=== PATIENT | female | born 1940 | race Caucasian/White ===

== ENCOUNTER → 2023-09-19 09:55 | Outpatient (REF) | payer MEDICARE, OTHER, SELFPAY ==
[2023-09-19 10:18] LABS: % Eosinophils 9.2 % (0-6); % Immature Granulocytes 0.3 % (0-0.5); % Lymphocytes 26.2 % (20.5-51.1); % Monocytes 8.7 % (1.7-9.3); % Neutrophils 54.6 % (42.2-75.2); Absolute Basophils 0.1 10^3/uL (0-0.2); Absolute Eosinophils 0.7 10^3/uL (0-0.7); Absolute Lymphocytes 2.1 10^3/uL (1.2-3.4); Absolute Monocytes 0.7 10^3/uL (0.1-0.6); Absolute Neutrophils 4.3 10^3/uL (1.4-6.5); Hematocrit 40.8 % (37.0-47.0); Hemoglobin 13.8 g/dL (12.0-16.0); Mean Corp Hgb Conc. 33.8 g/dL (33.0-37.0); Mean Corpuscular Hgb 30.6 pg (27.0-31.0); Mean Corpuscular Volume 90.5 fL (81.0-99.0); Mean Platelet Volume 8.8 fL (7.4-10.4); Nucleated Red Blood Cells % 0 %; Platelet Count 295 10^3/uL (130-400); Red Blood Cell Count 4.51 10^6/uL (4.20-5.40); Red Cell Dist. Width 14.5 % (11.5-14.5); White Blood Cell Count 7.9 10^3/uL (4.8-10.8)
[2023-09-19 12:00] LABS: Glycohemoglobin (HgbA1c) 6.2 % (4.0-5.6)
[2023-09-19 12:22] LABS: TSH Reflex To Free T4 3.37 uIU/ml (0.47-4.68)
[2023-09-19 13:16] LABS: ALT (SGPT) 15 U/L (0-35); AST (SGOT) 23 U/L (14-36); Albumin 4.2 g/dl (3.5-5.0); Alkaline Phosphatase 68 U/L (38-126); Blood Urea Nitrogen 16 mg/dl (7-17); Calcium 9.3 mg/dl (8.4-10.2); Carbon Dioxide 26 mmol/L (22-30); Chloride 106 mmol/L (98-107); Glucose 85 mg/dl (70-99); HDL Cholesterol 89 mg/dl; LDL Cholesterol, Calculated 162 mg/dl; Potassium 4.3 mmol/L (3.5-5.1); Sodium 137 mmol/L (135-145); Total Bilirubin 0.7 mg/dl (0.2-1.3); Total Cholesterol 279 mg/dl (50-199); Total Protein 6.9 g/dl (6.3-8.2); Triglyceride 144 mg/dl (10-149); Very Low Density Lipoprotein 28 mg/dl (0-30); eGFR > 60.00
== END ==
LOC: REG 09:55
PROVIDERS: ATTENDING PHYSICIAN Family Medicine
DX: I10 Essential (primary) hypertension (principal); E78.00 Pure hypercholesterolemia, unspecified; I87.2 Venous insufficiency (chronic) (peripheral); R73.03 Prediabetes; R73.9 Hyperglycemia, unspecified; I26.99 Other pulmonary embolism without acute cor pulmonale
CPT/HCPCS: 36415; 80053; 80061; 83036; 84443; 85025

== ENCOUNTER 2023-11-26 12:36 | Emergency (ER) | payer MEDICARE, OTHER, SELFPAY ==
[2023-11-26 12:39] VITALS: BP 136/76
[2023-11-26 12:41] VITALS: BP 136/76
[2023-11-26 13:00] VITALS: BP 142/74
[2023-11-26 13:12] LABS: COVID-19 Antigen Negative (Negative)
--- NOTE | 2023-11-26 13:48 | ED.GENMED ---
History of Present Illness
General
Chief Complaint: Cough
Source: patient and family
Exam Limitations: none
Time Seen by Provider: 11/26/23 12:52
Nursing documentation reviewed up to this point in time: agreed with
Travel History
Have you had any contact with someone who has COVID-19?: No
Do you have any symptoms of coronavirus? Fever > 100 degrees, chills, cough, shortness of breath, sore throat, loss of taste or smell, muscle aches, or headache?: Yes
Symptoms:: cough
History of Present Illness
History of Present Illness:
Patient presents to ED secondary to 2-day history of persistent cough along with shortness of breath over the past 2 days. Denies fever or chills. Denies chest pain or back pain. Denies nausea, vomiting, or diarrhea. Denies leg pain or swelling.
Denies recent illness. Denies recent change in medications or diet. Denies recent travel or surgery. Denies loss of appetite. Per daughter, patient appears to be having trouble speaking with shortness of breath, when she was on the phone with
her this morning. Patient has had history of panic attack.
Past History
Past History
ED Past Medical History: Hypercholesterolemia, Other (Pneumonia) and Other (DVT)
ED Past Surgical History: Cholecystectomy
Social History
Tobacco: Non-smoker
Alcohol: None
Drug: None
Personal:
Living: with family
Employment: Retired
Family History
Family History: Other (Noncontributory)
Review of Systems
Review of Systems
Allergies reviewed?: Yes
All Other Systems: ROS reviewed and negative except as documented in HPI and ROS
Constitutional: Reports no symptoms; Denies fever or chills
EENT: Reports no symptoms
Respiratory: Reports cough and trouble breathing
Cardiac: Reports no symptoms; Denies chest pain
ABD/GI: Reports no symptoms; Denies abdominal pain
: Reports no symptoms
Musculoskeletal: Reports no symptoms
Skin: Reports no symptoms
Neurological: Reports no symptoms
Phy Exam
Physical Exam
Physical Exam:
Physical Exam
General: no apparent distress, not acutely ill. afebrile
Head: nc/at. eomi
Neck: supple. no meningeal signs.
Heart: s1/s2 regular rate and rhythm, no murmur. equal radial pulses.
Lungs: no acute respiratory distress. clear bilaterally
Abdomen: normal bowel sounds. not tender.
Neuro: alert and oriented. no focal neurological deficits
Skin: no rash
Psychiatric: well kept. interactive and cooperative
Extremities: no edema. no calf tenderness.
Course
Orders/Labs/Results
Orders:
Orders
11/26/23 12:43
Electrocardiogram (*1) Urgent
Reason for Study: Shortness of Breath
EKG- Treatment ONCE
11/26/23 12:51
COVID-19 Antigen Urgent
Source: Nasal Swab
11/26/23 13:06
EKG- Treatment ONCE
CR Chest - 2 Views Urgent
Comment:
Reason For Exam: cough/sob
11/26/23 13:26
Basic Metabolic Panel Urgent
Complete Blood Count/With Diff Urgent
D-Dimer Urgent
Magnesium Urgent
Troponin I Urgent
Abnormal Lab Results
11/26/23
13:26
WBC 12.3 H 10^3/uL
(4.8-10.8)
Abs Immat Gran (auto) 0.1 H 10^3/uL
(0-0.05)
Absolute Neuts (auto) 8.8 H 10^3/uL
(1.4-6.5)
Absolute Monos (auto) 1.3 H 10^3/uL
(0.1-0.6)
Lymphocytes % 15.1 L %
(20.5-51.1)
Monocytes % 10.2 H %
(1.7-9.3)
D-Dimer 0.51 H ug/mlFEU
(0.00-0.50)
BUN 20 H mg/dl
(7-17)
Glucose 110 H mg/dl
(70-99)
11/26/23 13:26
11/26/23 13:26
Vital Signs
Initial and Last Documented VS:
Initial Vital Signs
Pulse Resp BP Pulse Ox
83 23 136/76 96
11/26/23 12:39 11/26/23 12:39 11/26/23 12:39 11/26/23 12:39
Last Documented Vital Signs
Temp Pulse Resp BP Pulse Ox
99.3 F 84 17 138/98 96
11/26/23 12:41 11/26/23 14:15 11/26/23 14:15 11/26/23 14:00 11/26/23 14:15
MDM/Problems Addressed
MDM/Problems Addressed:
Chest x-ray: No acute findings.
History and exam consistent with likely viral illness, along with resulting intermittent coughing spells, causing an acute spasm. As patient may also have underlying anxiety, patient may be experiencing subjective causing her to be more short of
breath. During extended course of observation ED, patient remained stable, hemodynamically stable, without any acute respiratory distress. Patient will be discharged home in stable condition to the care of her daughter, with recommendation to
follow-up with primary care physician later this week for reevaluation, or return to ED with worsening symptoms.
D-dimer, when adjusted for age, within normal limits. No indication for any further imaging studies at this time.
*EKG
Interpreted by ED Provider?: Yes
EKG Intrepretation Date: 11/26/23
Heart Rate: 86
Rate: normal
Rhythm: sinus
[place]: normal axis
Interval: normal interval
*Critical Care Note
Total Time (30-74mins, 75-104mins- exclusive of procedures): Not Applicable
ED Attending Note
-
Portions of this chart may have been created with voice recognition software.� Occasional wrong word or��sound alike� substitutions may have occurred due to the inherent limitations of voice recognition software.
Discharge Plan
Departure
Patient Disposition: Home (Routine Discharge)
Date of Disposition: 11/26/23
Time of Disposition: 14:17
Patient with high blood pressure during this ER visit?: Yes
Discharge Problem:
URI (upper respiratory infection)
Instructions: Viral Upper Respiratory Infection, Adult (DC)
Prescriptions:
No Action
medlfocw-vjm-FG-lycopen-lutein [Centrum Silver] 1 EACH tablet
1 ea PO DAILY
aspirin 81 MG tablet,delayed release (DR/EC)
81 mg PO DAILY
losartan 25 MG tablet
25 mg PO DAILY
zinc 50 MG tablet
50 mg PO DAILY
magnesium 250 MG tablet
250 mg PO DAILYPRN PRN (Reason: cramps)
omega 8-lyn-lfr-fish oil 1 EACH capsule
1,500 mg PO DAILY
pantoprazole 40 MG tablet,delayed release (DR/EC)
40 mg PO DAILY 30 Days Qty: 30 0RF
ibuprofen 400 MG tablet
400 mg PO Q6HPRN PRN (Reason: knee pains) 14 Days Qty: 60 0RF
amoxicillin-pot clavulanate 1 TABLET tablet
1 tab PO Q12 Qty: 20 0RF
Referrals:
UNKNOWN - PT DOES,NOT KNOW [Family Provider] -
Activity Restrictions/Additional Instructions:
As discussed, please follow-up with your primary care physician for reevaluation later this week, or return to ED with worsening symptoms.
Interventions
Interventions:
*Risk Screen - Suicide Last Done: 11/26/23 12:54
*General Assessment Last Done: 11/26/23 12:54
*Neglect/Abuse Screening Last Done: 11/26/23 12:54
ED- Fall Risk Assessment Last Done: 11/26/23 12:54
*ED COVID-19 Vaccine History Last Done: 11/26/23 12:54
*Nursing Disposition Last Done: 11/26/23 14:42
ED- Cardiac Assessment Last Done: 11/26/23 12:54
ED- Pulmonary Assessment Last Done: 11/26/23 12:54
Discharge Date and Time
Discharge Date/Time: 11/26/23 14:30
Print Language: SENEGALESE
[2023-11-26 13:50] LABS: % Basophils 0.6 % (0-2); % Eosinophils 2.5 % (0-6); % Immature Granulocytes 0.4 % (0-0.5); % Lymphocytes 15.1 % (20.5-51.1); % Monocytes 10.2 % (1.7-9.3); % Neutrophils 71.2 % (42.2-75.2); Absolute Basophils 0.1 10^3/uL (0-0.2); Absolute Eosinophils 0.3 10^3/uL (0-0.7); Absolute Immature Granulocytes 0.1 10^3/uL (0-0.05); Absolute Lymphocytes 1.9 10^3/uL (1.2-3.4); Absolute Monocytes 1.3 10^3/uL (0.1-0.6); Absolute Neutrophils 8.8 10^3/uL (1.4-6.5); Hematocrit 38.8 % (37.0-47.0); Mean Corp Hgb Conc. 33.5 g/dL (33.0-37.0); Mean Corpuscular Hgb 30.5 pg (27.0-31.0); Mean Corpuscular Volume 91.1 fL (81.0-99.0); Mean Platelet Volume 9.3 fL (7.4-10.4); Nucleated Red Blood Cells % 0 %; Platelet Count 287 10^3/uL (130-400); Red Blood Cell Count 4.26 10^6/uL (4.20-5.40); White Blood Cell Count 12.3 10^3/uL (4.8-10.8)
[2023-11-26 13:59] LABS: Blood Urea Nitrogen 20 mg/dl (7-17); Calcium 9.3 mg/dl (8.4-10.2); Carbon Dioxide 23 mmol/L (22-30); Chloride 101 mmol/L (98-107); Glucose 110 mg/dl (70-99); Magnesium 2.2 mg/dl (1.6-2.3); Sodium 135 mmol/L (135-145); eGFR > 60.00
[2023-11-26 14:00] VITALS: BP 138/98
[2023-11-26 14:05] LABS: D-Dimer 0.51 ug/mlFEU (0.00-0.50)
[2023-11-26 14:09] LABS: Troponin I < 0.012 ng/ml
[2023-11-26 14:11] LABS: Potassium 4.1 mmol/L (3.5-5.1)
== END 2023-11-26 14:30 | disposition home or self-care (01) ==
LOC: EMR 12:36
PROVIDERS: EMERGENCY PHYSICIAN Emergency Medicine
DX: J06.9 Acute upper respiratory infection, unspecified (principal); E78.00 Pure hypercholesterolemia, unspecified; Z86.718 Personal history of other venous thrombosis and embolism; Z90.49 Acquired absence of other specified parts of digestive tract
CPT/HCPCS: 99283; 71046; 80048; 83735; 84484; 85025; 85379; 87811; 93005

== ENCOUNTER 2023-11-27 12:02 | Emergency (ER) | payer MEDICARE, OTHER, SELFPAY ==
[2023-11-27 12:06] VITALS: BP 155/63
[2023-11-27 12:07] VITALS: BP 155/63
--- NOTE | 2023-11-27 13:07 | ED.GENMED ---
History of Present Illness
General
Chief Complaint: Breathing Problem
Source: patient
Exam Limitations: none
Time Seen by Provider: 11/27/23 12:41
Nursing documentation reviewed up to this point in time: agreed with
Travel History
Have you had any contact with someone who has COVID-19?: No
Do you have any symptoms of coronavirus? Fever > 100 degrees, chills, cough, shortness of breath, sore throat, loss of taste or smell, muscle aches, or headache?: Yes
Symptoms:: cough
History of Present Illness
History of Present Illness:
The patient is a pleasant 83-year-old female who reports she has had a cough and mild shortness of breath for 3 days. She was evaluated in the emergency department yesterday and had a chest x-ray done as well as blood work, D-dimer and COVID swab.
Patient was diagnosed with a viral URI. Patient reports that she called her primary care doctor's office today to have follow-up and to her surprise, her doctor had retired. Patient reports that this made her nervous because she was told to have
follow-up, and this prompted her to call 911. Patient arrives with complaints of persistent cough and mild shortness of breath. She denies fever. She reports she feels slightly weak and more short of breath with walking. Patient reports she
lives alone but has a very supportive family. She denies chest pain, headache, vomiting, diarrhea and rash. Patient reports she adamantly does not want to be admitted to the hospital but wanted to be checked out by her doctor, and when her doctor
was not available, she got nervous.
Past History
Past History
ED Past Medical History: Hypercholesterolemia, Other (Pneumonia) and Other (DVT)
ED Past Surgical History: Cholecystectomy
Social History
Tobacco: Non-smoker
Alcohol: None
Drug: None
Personal: Other
Living: alone
Employment: Retired
Family History
Family History: Other (Noncontributory)
Review of Systems
Review of Systems
Allergies reviewed?: Yes
All Other Systems: ROS reviewed and negative except as documented in HPI and ROS
Constitutional: Reports fatigue
EENT: Reports no symptoms
Respiratory: Reports cough and trouble breathing
Cardiac: Reports no symptoms
ABD/GI: Reports no symptoms
: Reports no symptoms
Musculoskeletal: Reports no symptoms
Skin: Reports no symptoms
Neurological: Reports no symptoms
Endocrine: Reports no symptoms
Hematologic/Lymphatic: Reports no symptoms
Psychiatric: Reports no symptoms
Phy Exam
Physical Exam
Physical Exam:
Physical Exam
General: no apparent distress, not acutely ill but appears nervous. Is conversational
Neck: supple. no meningeal signs. normal psoterior pharynx
Heart: Tachycardic, regular
Lungs: Lungs are clear. No retraction. No wheezing no crackles. Patient is mildly tachypneic with talking
Abdomen: Soft, nontender
Neuro: alert and oriented. no focal neurological deficits
Skin: no rash
Psychiatric: well kept. interactive and cooperative
Extremities: no edema. no calf tenderness. negative homans. good distal pulses
Scores
Heart Failure Risk
Heart Failure Risk Score: Not Applicable
Course
Orders/Labs/Results
Orders:
Orders
11/27/23 13:05
Prednisone [Deltasone] 20 mg PO NOW STA
11/27/23 13:06
CR Chest - 2 Views Urgent
Comment:
Reason For Exam: persistent cough, SOB
11/27/23 13:16
Influenza A+B Rapid Molecular Urgent
ALEJANDRINA Source: Nasal Swab
Specimen Description:
11/27/23 13:24
Electrocardiogram (*1) Urgent
Reason for Study: Tachycardia
11/27/23 13:25
EKG- Treatment ONCE
11/27/23 14:22
Doxycycline [Vibramycin] 100 mg PO NOW STA
Vital Signs
Initial and Last Documented VS:
Initial Vital Signs
Temp Pulse Resp BP Pulse Ox
98.9 F 108 27 155/63 95
11/27/23 12:06 11/27/23 12:06 11/27/23 12:06 11/27/23 12:06 11/27/23 12:06
Last Documented Vital Signs
Temp Pulse Resp BP Pulse Ox
98.9 F 98 27 163/90 95
11/27/23 12:06 11/27/23 15:30 11/27/23 15:30 11/27/23 15:00 11/27/23 15:30
MDM/Problems Addressed
Differential Diagnosis Includes:
Viral illness, pneumonia, CHF, PE
MDM/Problems Addressed:
Patient complains of acute shortness of breath and cough
Chronic conditions affecting care: HTN
Acute Exacerbation and/or Progression of Chronic Illness:
Patient is hypertensive, however, she does admit to feeling very anxious and just had an albuterol treatment prior to arrival.
Acute Exacerbation and/or Progression of Chronic Illness: HTN
*Radiology
Radiology exam reviewed: preliminary read by ED provider (Chest x-ray read by me. No acute disease) and radiology read reviewed
*Pulse Oximetry
Patient hypoxic: yes
Comment: Walking pulse ox 85% on room air. When patient sits down, pulse ox quickly goes to 92% on room air
*EKG
Interpreted by ED Provider?: Yes
Interpretation: abnormal
Comparison EKG: no changes
Rate: normal
Rhythm: sinus
[place]: normal axis
Interval: normal interval
QRS Pattern: normal QRS
Ischemia: non-specific ST changes
*Partition Setter Interpretation
Rate: tachycardiac
Interpretation: abnormal
Rhythm: sinus
*Critical Care Note
Total Time (30-74mins, 75-104mins- exclusive of procedures): Not Applicable
Data Reviewed
Review of Other/Old Records Reveals: Labs (D-dimer yesterday was 0.51 which is in a normal range for patient's age)
Patient Management
Social determinants of health affecting care: Living situation and Strong social support
Escalation/DeEscalation of care consider admission/obs:
Patient's walking pulse ox did drop to 85% on room air. I did speak to the patient and recommended that she be admitted to the hospital. Patient adamantly was unwilling to stay. She is alert and oriented x 3 and understands that we are worried
about her getting worse. I did call and speak directly to patient's daughter, Earnestine, at and did make it clear to her that her mom's oxygen level did drop and that we recommended that she stay in the hospital. Earnestine understands this
and is willing to allow her mom to go home and to support her at home.
Patient told that if she gets any worse with difficulty breathing, weakness, dizziness or any chest pain that she should come back immediately. Again, she understands that she is going to get standard of care because her oxygen levels dropped and
that we did recommend that she be admitted
ED Attending Note
-
Portions of this chart may have been created with voice recognition software.� Occasional wrong word or��sound alike� substitutions may have occurred due to the inherent limitations of voice recognition software.
Discharge Plan
Departure
Patient Disposition: Home (Routine Discharge)
Date of Disposition: 11/27/23
Time of Disposition: 15:45
Patient with high blood pressure during this ER visit?: Yes
Condition: Fair
Covid-19: Negative COVID-19
Discharge Problem:
Acute cough, Acute respiratory distress
Instructions: Shortness of Breath, Adult ED
Prescriptions:
New
prednisone 10 mg tablet
10 mg PO DAILY Qty: 9 0RF
Rx Instructions:
Take 2 tablets daily on days 1, 2, 3
Take 1 tablet daily on day 4, 5, 6
doxycycline hyclate 100 mg capsule
100 mg PO BID Qty: 13 0RF
No Action
aspirin 81 mg Tablet,Delayed Release (Dr/Ec)
162 mg PO DAILY
hydrochlorothiazide 12.5 mg Capsule
12.5 mg PO DAILY
Patient Comments:
11/27/2023, per daughter, pt. needs to be 'scared into taking' this med.; pt. does not take this med. on a routine basis.
Centrum Silver Tablet
1 tab PO DAILY
Unknown Supplements
1 dose PO DAILY
Unknown Vitamins
1 dose PO DAILY
acetaminophen [Tylenol] 325 mg Tablet
650 mg PO BIDPRN PRN (Reason: mild pain)
Referrals:
Rohit Bettencourt DC [Family Provider] -
Activity Restrictions/Additional Instructions:
We recommended that you be admitted to the hospital because your oxygen level dropped. Please do not hesitate to return to the emergency department if you feel any concerns such as difficulty breathing or weakness. You are welcome to come back at
any time.
Continue to use your albuterol inhaler every 4 hours for any difficulty breathing
Interventions
Interventions:
*Risk Screen - Suicide Last Done: 11/27/23 12:06
*General Assessment Last Done: 11/27/23 12:06
*Neglect/Abuse Screening Last Done: 11/27/23 12:06
ED- Fall Risk Assessment Last Done: 11/27/23 16:40
*Nursing Disposition Last Done: 11/27/23 16:40
ED- Cardiac Assessment Last Done: 11/27/23 12:13
ED- Pulmonary Assessment Last Done: 11/27/23 12:13
Discharge Date and Time
Discharge Date/Time: 11/27/23 16:41
Print Language: IRANIAN
[2023-11-27] MEDS: DELTASONE 20 MG PO (13:15)
[2023-11-27 13:19] VITALS: BP 154/71
[2023-11-27 14:00] VITALS: BP 154/74
[2023-11-27 15:00] VITALS: BP 163/90
[2023-11-27] MEDS: VIBRAMYCIN 100 MG PO (15:04)
--- NOTE | 2023-11-27 15:14 | PHANOTE ---
11/27/2023, med rec tech, spoke to pt. and pt.'s daughter to obtain pt.'s med. history; per daughter, pt. does not taking meds.; she has to be 'scared into taking' her HCTZ 12.5 mg capsule. Pt. states to not be taking this med. but it is prescribed
for her to take daily.
== END 2023-11-27 16:41 | disposition home or self-care (01) ==
LOC: EMR 12:02
PROVIDERS: EMERGENCY PHYSICIAN Emergency Medicine; FAMILY PHYSICIAN Chiropractor
DX: R05.9 Cough, unspecified (principal); R06.03 Acute respiratory distress; E78.00 Pure hypercholesterolemia, unspecified; I11.0 Hypertensive heart disease with heart failure; I50.9 Heart failure, unspecified; Z86.718 Personal history of other venous thrombosis and embolism; Z90.49 Acquired absence of other specified parts of digestive tract
CPT/HCPCS: 99283; 71046; 87502; 93005

== ENCOUNTER 2023-12-21 06:26 | Outpatient (RCR) | payer SELFPAY | END 2024-01-01 14:39 | disposition home or self-care (01) | LOC: ROT 06:26 | PROVIDERS: ATTENDING PHYSICIAN Family Medicine | DX: Z02.4 Encounter for examination for driving license (principal) ==

== ENCOUNTER → 2024-02-05 15:59 | Outpatient (REF) | payer MEDICARE, SELFPAY | LOC: RAD 15:59 | PROVIDERS: ATTENDING PHYSICIAN Physician Assistant Medical; FAMILY PHYSICIAN Family Medicine | DX: M25.521 Pain in right elbow (principal) | CPT/HCPCS: 73080 ==

== ENCOUNTER → 2024-02-14 14:01 | Outpatient (REF) | payer MEDICARE, OTHER, SELFPAY | LOC: HWRAD 14:01 | PROVIDERS: ATTENDING PHYSICIAN Family Medicine | DX: S09.90XD Unspecified injury of head, subsequent encounter (principal); R51.9 Headache, unspecified; R42 Dizziness and giddiness | CPT/HCPCS: 70450 ==

== ENCOUNTER → 2024-08-25 15:06 | Outpatient (REF) | payer MEDICARE, OTHER, SELFPAY | LOC: RAD 15:06 | PROVIDERS: ATTENDING PHYSICIAN Family Medicine | DX: R60.0 Localized edema (principal) | CPT/HCPCS: 93971 ==

== ENCOUNTER → 2024-10-30 11:40 | Outpatient (REF) | payer MEDICARE, OTHER, SELFPAY ==
[2024-10-30 13:25] LABS: % Eosinophils 5.9 % (0-6); % Immature Granulocytes 0.4 % (0-0.5); % Lymphocytes 26.4 % (20.5-51.1); % Monocytes 7.3 % (1.7-9.3); Absolute Basophils 0.1 10^3/uL (0-0.2); Absolute Eosinophils 0.4 10^3/uL (0-0.7); Absolute Lymphocytes 1.9 10^3/uL (1.2-3.4); Absolute Monocytes 0.5 10^3/uL (0.1-0.6); Absolute Neutrophils 4.2 10^3/uL (1.4-6.5); Hematocrit 39.8 % (37.0-47.0); Hemoglobin 13.4 g/dL (12.0-16.0); Mean Corp Hgb Conc. 33.7 g/dL (33.0-37.0); Mean Corpuscular Hgb 30.6 pg (27.0-31.0); Mean Corpuscular Volume 90.9 fL (81.0-99.0); Mean Platelet Volume 9.4 fL (7.4-10.4); Nucleated Red Blood Cells % 0 %; Platelet Count 294 10^3/uL (130-400); Red Blood Cell Count 4.38 10^6/uL (4.20-5.40); Red Cell Dist. Width 13.9 % (11.5-14.5); White Blood Cell Count 7.1 10^3/uL (4.8-10.8)
[2024-10-30 13:53] LABS: Glycohemoglobin (HgbA1c) 5.9 % (4.0-5.6)
[2024-10-30 14:05] LABS: ALT (SGPT) 12 U/L (0-35); AST (SGOT) 19 U/L (14-36); Albumin 4.2 g/dl (3.5-5.0); Alkaline Phosphatase 62 U/L (38-126); Blood Urea Nitrogen 15 mg/dl (7-17); Calcium 9.5 mg/dl (8.4-10.2); Carbon Dioxide 25 mmol/L (22-30); Chloride 100 mmol/L (98-107); Glucose 129 mg/dl (70-99); HDL Cholesterol 73 mg/dl; Potassium 4.1 mmol/L (3.5-5.1); Sodium 136 mmol/L (135-145); Total Bilirubin 0.8 mg/dl (0.2-1.3); Total Protein 6.7 g/dl (6.3-8.2); Triglyceride 168 mg/dl (10-149); Very Low Density Lipoprotein 33 mg/dl (0-30); eGFR > 60.00
[2024-10-30 14:11] LABS: LDL Cholesterol, Calculated 172 mg/dl; Total Cholesterol 278 mg/dl (50-199)
[2024-10-30 14:45] LABS: TSH Reflex To Free T4 3.47 uIU/ml (0.47-4.68)
== END ==
LOC: REG 11:40
PROVIDERS: ATTENDING PHYSICIAN Family Medicine
DX: R73.03 Prediabetes (principal); R53.83 Other fatigue; E78.2 Mixed hyperlipidemia
CPT/HCPCS: 36415; 80053; 80061; 83036; 84443; 85025

== ENCOUNTER 2024-11-09 12:18 | Emergency (ER) | payer MEDICARE, OTHER, SELFPAY ==
[2024-11-09 12:24] VITALS: BP 161/61; BMI 29.8
--- NOTE | 2024-11-09 12:34 | EDRN ---
Antony YANES in room w/pt.
[2024-11-09 12:41] LABS: % Basophils 0.8 % (0-2); % Eosinophils 4.2 % (0-6); % Immature Granulocytes 0.5 % (0-0.5); % Lymphocytes 27.8 % (20.5-51.1); % Monocytes 8.3 % (1.7-9.3); % Neutrophils 58.4 % (42.2-75.2); Absolute Basophils 0.1 10^3/uL (0-0.2); Absolute Eosinophils 0.4 10^3/uL (0-0.7); Absolute Lymphocytes 2.5 10^3/uL (1.2-3.4); Absolute Monocytes 0.7 10^3/uL (0.1-0.6); Absolute Neutrophils 5.1 10^3/uL (1.4-6.5); Hematocrit 41.1 % (37.0-47.0); Hemoglobin 14.3 g/dL (12.0-16.0); Mean Corp Hgb Conc. 34.8 g/dL (33.0-37.0); Mean Corpuscular Hgb 30.8 pg (27.0-31.0); Mean Corpuscular Volume 88.6 fL (81.0-99.0); Nucleated Red Blood Cells % 0 %; Platelet Count 311 10^3/uL (130-400); Red Blood Cell Count 4.64 10^6/uL (4.20-5.40); Red Cell Dist. Width 13.7 % (11.5-14.5); White Blood Cell Count 8.8 10^3/uL (4.8-10.8)
[2024-11-09 12:51] LABS: ALT (SGPT) 15 U/L (0-35); AST (SGOT) 22 U/L (14-36); Albumin 4.3 g/dl (3.5-5.0); Alkaline Phosphatase 67 U/L (38-126); Blood Urea Nitrogen 17 mg/dl (7-17); Calcium 9.8 mg/dl (8.4-10.2); Carbon Dioxide 27 mmol/L (22-30); Chloride 99 mmol/L (98-107); Estimated Creatinine Clearance 41 ml/min; Glucose 155 mg/dl (70-99); Potassium 3.8 mmol/L (3.5-5.1); Sodium 134 mmol/L (135-145); Total Bilirubin 0.8 mg/dl (0.2-1.3); Total Protein 7.2 g/dl (6.3-8.2); eGFR > 60.00
[2024-11-09 13:00] VITALS: BP 152/67
[2024-11-09 13:02] LABS: Troponin I 0.016 ng/ml
--- NOTE | 2024-11-09 13:19 | ED.GENMED ---
History of Present Illness
General
Chief Complaint: Fainting/Passed Out
Source: patient
Exam Limitations: none
Time Seen by Provider: 11/09/24 12:23
Nursing documentation reviewed up to this point in time: agreed with
History of Present Illness
History of Present Illness:
84-year-old female presenting to the emergency department today with concerns of syncopal episode while at [employer] she was slowly lowered to the ground by her family no specific injury. Has been feeling weak for a month. Denies specific chest pain
shortness of breath or palpitations.
Past History
Past History
ED Past Medical History: Hypercholesterolemia, Other (Pneumonia) and Other (DVT)
ED Past Surgical History: Cholecystectomy
Social History
Tobacco: Non-smoker
Alcohol: None
Drug: None
Personal: Other
Living: alone
Employment: Retired
Family History
Family History: Other (Noncontributory)
Review of Systems
Review of Systems
Allergies reviewed?: Yes
All Other Systems: ROS reviewed and negative except as documented in HPI and ROS
Phy Exam
Physical Exam
Physical Exam:
GENERAL: Alert , in no apparent distress
EYE: pupils equal and reactive
NECK: Supple, no significant adenopathy.
ENT: o/p clr, mmm.
CARDIAC: Regular rate and rhythm .
LUNGS: Clear breath sounds bilaterally, no acute respiratory distress, no wheezes/rales/rhonchi
ABDOMEN: Soft, without focal tenderness, no r/g, no cvat
NEUROLOGICAL: Alert patient is confused no focal neuro deficits
SKIN: Warm and dry, skin intact.
MUSCULOSKELETAL: No edema, well perfused.
PSYCH: Normal and appropriate interaction.
Course
Orders/Labs/Results
Orders:
Orders
11/09/24 12:23
Electrocardiogram (*1) Urgent
Reason for Study: Chest Pain
Cardiac Monitoring- Treatment ONCE
EKG- Treatment ONCE
11/09/24 12:32
Complete Blood Count/With Diff Urgent
Comprehensive Metabolic Panel Urgent
Free T4 Urgent
TSH Reflex To Free T4 Urgent
Comment: ADD ON
Troponin I Urgent
11/09/24 12:35
Add On- LAB Urgent
Tests Added?: Weakness I am not gettingtsh free t4
CT Head W/o Iv Contrast Urgent
Comment:
Reason For Exam: fall, weakness
Urinalysis Reflex To Culture Urgent
11/09/24 13:56
Pt Eval And Treat Urgent
Activity Level: Ambulate
Abnormal Lab Results
11/09/24
12:32
Absolute Monos (auto) 0.7 H 10^3/uL
(0.1-0.6)
Sodium 134 L mmol/L
(135-145)
Glucose 155 H mg/dl
(70-99)
TSH (Reflex) 6.02 H uIU/ml
(0.47-4.68)
11/09/24 12:32
11/09/24 12:32
Vital Signs
Initial and Last Documented VS:
Initial Vital Signs
Temp Pulse Resp BP Pulse Ox
97.3 F 57 16 161/61 92
11/09/24 12:24 11/09/24 12:24 11/09/24 12:24 11/09/24 12:24 11/09/24 12:24
Last Documented Vital Signs
Temp Pulse Resp BP Pulse Ox
97.3 F 87 15 159/76 95
11/09/24 12:24 11/09/24 15:45 11/09/24 15:45 11/09/24 15:00 11/09/24 15:45
MDM/Problems Addressed
MDM/Problems Addressed:
84-year-old female presenting after syncopal episode at [employer]. Witnessed by the family lowered to the ground slowly did not sustain trauma no evidence of trauma on examination. She denies any chest pain shortness of breath no specific symptoms at
this time but she claims that she has been feeling weak for about a month now. Here patient in no distress vital signs showing slight elevated blood pressure but otherwise vital signs are normal. Labs unremarkable troponin negative EKG normal head
CT negative. In no distress for multiple hours here in the ER stable for outpatient follow-up. Return precautions given.
*Critical Care Note
Total Time (30-74mins, 75-104mins- exclusive of procedures): Not Applicable
ED Attending Note
-
Portions of this chart may have been created with voice recognition software.� Occasional wrong word or��sound alike� substitutions may have occurred due to the inherent limitations of voice recognition software.
Discharge Plan
Departure
Patient Disposition: Home (Routine Discharge)
Date of Disposition: 11/09/24
Time of Disposition: 16:14
Patient with high blood pressure during this ER visit?: No
Condition: Good
Covid-19: Not Applicable
Discharge Problem:
Syncope
Instructions: Syncope (Fainting) (DC)
Prescriptions:
No Action
aspirin 81 mg Tablet,Delayed Release (Dr/Ec)
162 mg PO DAILY
hydrochlorothiazide 12.5 mg Capsule
12.5 mg PO DAILY
Patient Comments:
11/27/2023, per daughter, pt. needs to be 'scared into taking' this med.; pt. does not take this med. on a routine basis.
Centrum Silver Tablet
1 tab PO DAILY
Unknown Supplements
1 dose PO DAILY
Unknown Vitamins
1 dose PO DAILY
acetaminophen [Tylenol] 325 mg Tablet
650 mg PO BIDPRN PRN (Reason: mild pain)
prednisone 10 mg tablet
10 mg PO DAILY Qty: 9 0RF
Rx Instructions:
Take 2 tablets daily on days 1, 2, 3
Take 1 tablet daily on day 4, 5, 6
doxycycline hyclate 100 mg capsule
100 mg PO BID Qty: 13 0RF
Referrals:
Sondra Moore MD [Family Provider] -
Activity Restrictions/Additional Instructions:
You came to the emergency department today after a syncopal episode. Here you had a reassuring assessment. You did have a brief episode where your pulse ox dropped into the 80s while you were sleeping. This could indicate that you have sleep
apnea. It is important for outpatient follow-up for this. Return for any worsening, new or concerning symptoms.
Interventions
Interventions:
*Risk Screen - Suicide Last Done: 11/09/24 12:24
*General Assessment Last Done: 11/09/24 12:24
*Neglect/Abuse Screening Last Done: 11/09/24 12:24
*ED- Fall Risk Assessment Last Done: 11/09/24 12:24
*ED COVID-19 Vaccine History Last Done: 11/09/24 12:24
ED- Cardiac Assessment Last Done: 11/09/24 12:35
ED- Neurological Assessment Last Done: 11/09/24 12:35
Discharge Date and Time
Print Language: BELGIAN
--- NOTE | 2024-11-09 13:28 | EDRN ---
Pt's oxygen dipping to upper 80's on sleeping 87-88% on RA. Pt was placed on oxygen at 2lpm via [place].
[2024-11-09 13:35] LABS: TSH Reflex To Free T4 6.02 uIU/ml (0.47-4.68)
[2024-11-09 14:14] VITALS: BP 179/69
[2024-11-09 15:00] VITALS: BP 159/76
[2024-11-09 15:45] VITALS: O2SAT 95
== END 2024-11-09 16:57 | disposition home or self-care (01) ==
LOC: EMR 12:18
PROVIDERS: Physician Assistant; EMERGENCY PHYSICIAN Student in an Organized Health Care Education/Training Program; FAMILY PHYSICIAN Family Medicine
DX: R55 Syncope and collapse (principal)
CPT/HCPCS: 99285; 70450; 80053; 84439; 84443; 84484; 85025; 93005

== ENCOUNTER 2025-05-10 18:57 | Observation (INO) | payer MEDICARE, OTHER, SELFPAY ==
[2025-05-10] VITALS (15 sets, daily range): BP systolic 101–187; BP diastolic 60–107; PULSE 61–70; BMI 31.4; BMI 26.2
[2025-05-10 13:57] LABS: Glucose - Point of Care 120 mg/dl (70-99)
[2025-05-10] MEDS: NSS 1000 IV (14:07)
[2025-05-10 14:23] LABS: Hematocrit 40.1 % (37.0-47.0); Hemoglobin 13.5 g/dL (12.0-16.0); Mean Corp Hgb Conc. 33.7 g/dL (33.0-37.0); Mean Corpuscular Volume 89.3 fL (81.0-99.0); Nucleated Red Blood Cells % 0 %; Platelet Count 269 10^3/uL (130-400); Red Cell Dist. Width 13.3 % (11.5-14.5)
[2025-05-10 14:45] LABS: ALT (SGPT) 11 U/L (0-35); AST (SGOT) 15 U/L (14-36); Albumin 3.8 g/dl (3.5-5.0); Alkaline Phosphatase 58 U/L (38-126); Blood Urea Nitrogen 19 mg/dl (7-17); Calcium 9.3 mg/dl (8.4-10.2); Carbon Dioxide 28 mmol/L (22-30); Chloride 105 mmol/L (98-107); Estimated Creatinine Clearance 47 ml/min; Glucose 113 mg/dl (70-99); Potassium 4.5 mmol/L (3.5-5.1); Sodium 137 mmol/L (135-145); Total Protein 6.6 g/dl (6.3-8.2); eGFR > 60.00
--- NOTE | 2025-05-10 15:02 | ED.GENMED ---
History of Present Illness
<David Gomez PA-C - Last Filed: 05/10/25 20:45>
General
Chief Complaint: Fainting/Passed Out
Source: patient, family and ambulance crew
Time Seen by Provider: 05/10/25 14:33
History of Present Illness
History of Present Illness:
84-year-old female with past medical history of hypertension and previous DVT PE presenting to the emergency department via EMS from [facility] where patient is a long-term resident for evaluation after she was at the dining [employer] when she had a
witnessed syncopal episode, patient stating she does not remember exactly what happened noting she had no prodromal symptoms prior to the syncope. There is no reported history of similar. Patient reports at this time she is asymptomatic, denies
any chest pain, shortness of breath, visual changes, focal weakness or numbness. She does state she has some mild head discomfort, it was reported she was sitting on a chair at the time of the syncope and family does not believe the patient fell to
the ground. No known cardiac history although family does state a few years ago they did have the patient seen by a pull through hooker due to some swelling in her bilateral lower legs but do not follow with the pull through hooker routinely.
Past History
<David Gomez PA-C - Last Filed: 05/10/25 20:45>
Past History
ED Past Medical History: Hypercholesterolemia, Other (Pneumonia) and Other (DVT)
ED Past Surgical History: Cholecystectomy and Other
Social History
Tobacco: Non-smoker
Alcohol: None
Drug: None
Personal: Other
Living: alone
Employment: Retired
Family History
Family History: Other (Noncontributory)
Review of Systems
<David Gomez PA-C - Last Filed: 05/10/25 20:45>
Review of Systems
All Other Systems: ROS reviewed and negative except as documented in HPI and ROS
Phy Exam
<David Gomez PA-C - Last Filed: 05/10/25 20:45>
Physical Exam
Physical Exam:
GENERAL: Alert , in no apparent distress, smiling and pleasant
HEAD: Normocephalic atraumatic
EYE: conjunctiva clear
NECK: Supple
ENT: mmm.
CARDIAC: Regular rate and rhythm, Systolic murmur at the right second intercostal space and left sternal border
LUNGS: Clear breath sounds bilaterally, no acute respiratory distress, no wheezes/rales/rhonchi
NEUROLOGICAL: Alert and oriented x 3
SKIN: Warm and dry, skin intact.
MUSCULOSKELETAL: well perfused.
PSYCH: Normal and appropriate interaction.
Scores
<David Gomez PA-C - Last Filed: 05/10/25 20:45>
Heart Failure Risk
Heart Failure Risk Score: Not Applicable
Heart Score for Chest Pain Patients
STEMI patient?: Not applicable
Withdrawal Assessment of Alcohol
Withdrawal Assessment Completed?: Not applicable
Course
<David Gomez PA-C - Last Filed: 05/10/25 20:45>
Orders/Labs/Results
Orders:
Orders
05/10/25 Breakfast
Regular
05/10/25 13:47
EKG [Electrocardiogram (*1)] Urgent
Reason for Study: Syncope
EKG- Treatment ONCE
05/10/25 14:05
Complete Blood Count/With Diff Urgent
Comprehensive Metabolic Panel Urgent
NT-proBNP Urgent
Comment: ADD ON
05/10/25 14:07
0.9% Sodium Chloride 1000 ml [Nss] 1,000 ml IV BOLUS
05/10/25 14:33
Orthostatic VS- Treatment ONCE
05/10/25 15:08
Urinalysis Reflex To Culture Urgent
Date Specimen was Collected: 05/10/25
Time Specimen was Collected: 15:07
Urine Microscopic Reflex Cult Urgent
Urine Culture Urgent
ALEJANDRINA Source: U
Specimen Description:
Date Specimen was Collected: 05/10/25
Time Specimen was Collected: 15:07
05/10/25 15:36
CT Head & Neck Angio W/wo IV Urgent
Comment:
Reason For Exam: syncope, neck pain
05/10/25 18:30
Add On- LAB Urgent
Tests Added?: BNP
CR Chest - 2 Views Urgent
Comment:
Reason For Exam: syncope, rales on exam
05/10/25 18:33
Admit/Transfer Patient As Directed
Co-Sign Provider:
Level of Care: Observation services
Assign to:: Telemetry
Physician / Group: Tirso
Diagnosis: Syncope
Reason for Telemetry: Syncope
Date to Stop Telemetry: 05/12/25
Time to Stop Telemetry: 11:00
Code Status As Directed
Resuscitation Status: Full Code
PRN Pain Medication Management As Directed
May give lesser potent ordered pain med per pt: Yes
preference::
Protocol:: Medication orders for pain may be administered in a
manner that supports deferring to patient preference
when the pt is:
- Requesting an ordered lesser potent pain medication.
Least to most potent pain medications are defined
as: acetaminophen < NSAID < tramadol < opioids
(morphine, oxycodone, hydromorphone).
- Requesting a lesser dose of the same medication IF
ORDERED.
- Requesting a less intrusive route of administration
if both routes are prescribed by the provider (PO <
IV).
05/10/25 20:14
Acetaminophen [Tylenol] 650 mg PO Q4HPRN PRN
HydrALAZINE [Apresoline] 5 mg IV Q6HPRN PRN
05/10/25 20:14
Echo 2D MMode Color/Doppler Routine
Reason for Study: murmur, syncope
Activity As Directed
Activity Level: Out of Bed-Early Mobility
With Assistance
I&O [Intake/ Output] As Directed
Frequency: q12h
Vital Signs As Directed
Frequency: Per unit guidelines
Weight As Directed
Frequency: Daily
DX Deep Vein Thrombosis Video Routine
05/11/25 06:00
Basic Metabolic Panel IN AM
Complete Blood Count/No Diff IN AM
Magnesium IN AM
05/11/25 18:00
Enoxaparin Sodium [Lovenox] 40 mg SC QPM
05/12/25 11:00
DC Protocol for Telemetry ONCE
Abnormal Lab Results
05/10/25 05/10/25 05/10/25
13:56 14:05 15:08
Absolute Monos (auto) 0.8 H 10^3/uL
(0.1-0.6)
Monocytes % 10.1 H %
(1.7-9.3)
BUN 19 H mg/dl
(7-17)
Glucose 113 H mg/dl
(70-99)
Leukocyte Esterase Rfl 1+ A
(Negative)
Urine WBC (Reflex) 11-15 A /HPF
(0-5)
Urine Bacteria (Reflex) Few A
(Negative)
Urine Albumin (Reflex) 1+ A
(Neg - Trace)
POC Glucose 120 H mg/dl
(70-99)
05/10/25 14:05
05/10/25 14:05
Vital Signs
Initial and Last Documented VS:
Initial Vital Signs
Temp Pulse Resp BP Pulse Ox
98.3 F 69 17 101/71 94
05/10/25 13:49 05/10/25 13:49 05/10/25 13:49 05/10/25 13:49 05/10/25 13:49
Last Documented Vital Signs
Temp Pulse Resp BP Pulse Ox
98.5 F 99 16 174/107 95
05/10/25 20:17 05/10/25 20:17 05/10/25 20:17 05/10/25 20:17 05/10/25 20:17
<Mat Ruelas MD - Last Filed: 05/10/25 16:35>
Orders/Labs/Results
Orders:
Orders
05/10/25 Breakfast
Regular
05/10/25 13:47
EKG [Electrocardiogram (*1)] Urgent
Reason for Study: Syncope
EKG- Treatment ONCE
05/10/25 14:05
Complete Blood Count/With Diff Urgent
Comprehensive Metabolic Panel Urgent
NT-proBNP Urgent
Comment: ADD ON
05/10/25 14:07
0.9% Sodium Chloride 1000 ml [Nss] 1,000 ml IV BOLUS
05/10/25 14:33
Orthostatic VS- Treatment ONCE
05/10/25 15:08
Urinalysis Reflex To Culture Urgent
Date Specimen was Collected: 05/10/25
Time Specimen was Collected: 15:07
Urine Microscopic Reflex Cult Urgent
Urine Culture Urgent
ALEJANDRINA Source: U
Specimen Description:
Date Specimen was Collected: 05/10/25
Time Specimen was Collected: 15:07
05/10/25 15:36
CT Head & Neck Angio W/wo IV Urgent
Comment:
Reason For Exam: syncope, neck pain
05/10/25 18:30
Add On- LAB Urgent
Tests Added?: BNP
CR Chest - 2 Views Urgent
Comment:
Reason For Exam: syncope, rales on exam
05/10/25 18:33
Admit/Transfer Patient As Directed
Co-Sign Provider:
Level of Care: Observation services
Assign to:: Telemetry
Physician / Group: Tirso
Diagnosis: Syncope
Reason for Telemetry: Syncope
Date to Stop Telemetry: 05/12/25
Time to Stop Telemetry: 11:00
Code Status As Directed
Resuscitation Status: Full Code
PRN Pain Medication Management As Directed
May give lesser potent ordered pain med per pt: Yes
preference::
Protocol:: Medication orders for pain may be administered in a
manner that supports deferring to patient preference
when the pt is:
- Requesting an ordered lesser potent pain medication.
Least to most potent pain medications are defined
as: acetaminophen < NSAID < tramadol < opioids
(morphine, oxycodone, hydromorphone).
- Requesting a lesser dose of the same medication IF
ORDERED.
- Requesting a less intrusive route of administration
if both routes are prescribed by the provider (PO <
IV).
05/10/25 20:14
Acetaminophen [Tylenol] 650 mg PO Q4HPRN PRN
HydrALAZINE [Apresoline] 5 mg IV Q6HPRN PRN
05/10/25 20:14
Echo 2D MMode Color/Doppler Routine
Reason for Study: murmur, syncope
Activity As Directed
Activity Level: Out of Bed-Early Mobility
With Assistance
I&O [Intake/ Output] As Directed
Frequency: q12h
Vital Signs As Directed
Frequency: Per unit guidelines
Weight As Directed
Frequency: Daily
DX Deep Vein Thrombosis Video Routine
05/11/25 06:00
Basic Metabolic Panel IN AM
Complete Blood Count/No Diff IN AM
Magnesium IN AM
05/11/25 18:00
Enoxaparin Sodium [Lovenox] 40 mg SC QPM
05/12/25 11:00
DC Protocol for Telemetry ONCE
Abnormal Lab Results
05/10/25 05/10/25 05/10/25
13:56 14:05 15:08
Absolute Monos (auto) 0.8 H 10^3/uL
(0.1-0.6)
Monocytes % 10.1 H %
(1.7-9.3)
BUN 19 H mg/dl
(7-17)
Glucose 113 H mg/dl
(70-99)
Leukocyte Esterase Rfl 1+ A
(Negative)
Urine WBC (Reflex) 11-15 A /HPF
(0-5)
Urine Bacteria (Reflex) Few A
(Negative)
Urine Albumin (Reflex) 1+ A
(Neg - Trace)
POC Glucose 120 H mg/dl
(70-99)
05/10/25 14:05
05/10/25 14:05
Vital Signs
Initial and Last Documented VS:
Initial Vital Signs
Temp Pulse Resp BP Pulse Ox
98.3 F 69 17 101/71 94
05/10/25 13:49 05/10/25 13:49 05/10/25 13:49 05/10/25 13:49 05/10/25 13:49
Last Documented Vital Signs
Temp Pulse Resp BP Pulse Ox
98.5 F 99 16 174/107 95
05/10/25 20:17 05/10/25 20:17 05/10/25 20:17 05/10/25 20:17 05/10/25 20:17
<David Gomez PA-C - Last Filed: 05/10/25 20:45>
MDM/Problems Addressed
Differential Diagnosis Includes:
Cardiac arrhythmia/dysrhythmia
Orthostasis
Hyper/hypoglycemia
Medication Interaction
Valvular Dysfunction
Electrolyte imbalance
MDM/Problems Addressed:
84-year-old female presenting to the ER for evaluation of a witnessed syncopal event, patient does not remember the events that led up to the syncope. Patient does have a murmur on exam, family is unaware of patient having any history of murmur in
the past. Given her age combined with presenting symptoms and lack of symptoms prior to the syncope would err on the side of wanting to continuously monitor the patient on telemetry and given her cardiac murmur she would likely need echocardiogram
for monitoring/potential cause of her syncope. Family is in agreement with this plan. Awaiting labs, CT imaging. Disposition pending
<David Gomez PA-C - Last Filed: 05/10/25 20:45>
*Radiology
Radiology exam reviewed: radiology read reviewed
*Pulse Oximetry
SaO2: 97
Oxygen Mode of Delivery: Room air
Patient hypoxic: no
*EKG
Heart Rate: 71
Rate: normal
Rhythm: sinus
[place]: normal axis
Ischemia: no ischemia
*Pet Stylist Interpretation
Rate: normal
Heart Rate: 84
Rhythm: sinus
*Critical Care Note
Total Time (30-74mins, 75-104mins- exclusive of procedures): Not Applicable
Data Reviewed
Review of Other/Old Records Reveals: Labs, Records and Testing
<David Gomez PA-C - Last Filed: 05/10/25 20:45>
Patient Management
Discussion with other providers: Hospitalist
Escalation/DeEscalation of care consider admission/obs:
Patient's workup is relatively unremarkable, there are 11-15 WBCs on her urine but there is greater than 30 squamous cells and bacteria signifying possible contamination. Will await urine culture prior to initiating treatment or defer to
hospitalist team. Given this is her second episode of syncope without a clear etiology and patient does not have any recollection of the syncope will admit for telemetry and monitoring, possible cardiology consultation. Hospitalist team is aware
and accepts for further treatment.
ED Attending Note
<David Gomez PA-C - Last Filed: 05/10/25 20:45>
-
Portions of this chart may have been created with voice recognition software.� Occasional wrong word or��sound alike� substitutions may have occurred due to the inherent limitations of voice recognition software.
<Mat Ruleas MD - Last Filed: 05/10/25 16:35>
ED Attending Note
Patient seen and examined by attending physician: Yes
ED Attending Note:
Patient presents to ED for evaluation after witnessed syncopal episode this morning at care home, while she was getting ready to lunch. Patient recalls having sensation that she may pass out. Patient unsure how long she may have been
unconscious. However, when she did wake up, patient did not remember where she was. Patient is complaining of neck pain during evaluation, which she is attributing to step stretcher that she is currently sitting on. Denies headache. Denies
dizziness. Denies blurred vision. Denies loss of sensation or weakness. Denies recent illness. Denies recent change in medications or diet. Patient has had similar episode earlier this year, for which she was evaluated in ED.
Physical Exam
General: no apparent distress, not acutely ill. afebrile
Head: nc/at. eomi
Neck: supple. normal range of motion. no midline tenderness. no carotid bruit.
Heart: s1/s2 regular rate and rhythm
Lungs: no acute respiratory distress. clear bilaterally
Abdomen: normal bowel sounds. not tender.
Neuro: alert and oriented x 3. no focal neurological deficits. normal speech.
Skin: no rash
Psychiatric: well kept. interactive and cooperative
Extremities: no edema. no calf tenderness.
History and exam consistent with unprovoked syncopal episode, recurrent, without clear etiology. As such, patient will be admitted for further evaluation and treatment.
CT head and CT angiogram head and neck pending. Patient otherwise remains afebrile, hemodynamically stable, and neurologically intact during observation.
Discharge Plan
Departure
Patient Disposition: Admit
Date of Disposition: 05/10/25
Time of Disposition: 18:11
Presentation/result/management discussed w/ accepting MD/DO: Hospitalist
Discharge Problem:
Syncope and collapse
Interventions
Interventions:
*Risk Screen - Suicide Last Done: 05/10/25 13:49
*General Assessment Last Done: 05/10/25 13:49
*Neglect/Abuse Screening Last Done: 05/10/25 13:49
*ED- Fall Risk Assessment Last Done: 05/10/25 13:49
*ED COVID-19 Vaccine History Last Done: 05/10/25 13:49
*Nursing Disposition Last Done: 05/10/25 19:59
ED- Cardiac Assessment Last Done: 05/10/25 13:55
ED- Neurological Assessment Last Done: 05/10/25 13:55
Discharge Date and Time
Discharge Date/Time: 05/10/25 20:00
[2025-05-10 15:37] LABS: Urine Character Clear (Clear)
[2025-05-10 16:07] LABS: Urine Red Blood Cell 0-2 /HPF (0-2); Urine Squamous Cell >30 /LPF (Few)
--- NOTE | 2025-05-10 18:31 | HPS.HSE ---
Addendum entered and electronically signed by Vicky Chahal MD 05/10/25 20:05:
This is an addendum to H&P written by Samina Trevino on 05/10/2025. �Patient seen and examined independently with PA.
84-year-old female past medical history of hypertension, mild to moderate aortic stenosis, prior DVT/PE, hypercholesteremia, dementia presenting from [facility] for witnessed syncopal episode. �No preceding prodrome. �No chest pain or shortness of
breath, focal weakness or numbness. �Has some mild head discomfort. Had a similar episode in October with negative workup at that time.
She has chronic shortness of breath.�
Few years ago patient saw casing mixer due to swelling in her legs.
Blood pressure of 183/70. �EKG shows normal sinus rhythm, incomplete right bundle branch block. Significant JVD on exam with crackles.� Has lower extremity edema.�
Labs unremarkable.
CTA head and neck shows no significant abnormality. CXR apaears to show pulmonary edema, report pending.�
Patient with syncopal episode concerning for worsening Aortic Stenosis and Acute CHF.� IV fluids given by ER but will give 40 IV Lasix. Check echocardiogram.� PRN hydralazine for elevated BP.�
Original Note:
Family Physician
-
Family Physician: Sondra Moore MD
Chief Complaint
-
Syncope
History of Present Illness
Patient is an 84 y/o female past medical history of dementia, hypertension, and hyperlipidemia who presents following a syncopal episode. Additional history provided by family at bedside. Patient resides at [facility]. While sitting in the
dining room waiting for lunch patient has a witnessed syncopal episode. Patient is unable to tell me of any prodromal symptoms. Family reports patient had a similar episode earlier this year while at [employer]. At that time she was brought to the
emergency department where she was observed on a monitor for several hours without arrhythmia noted.
Medical History
Past Medical History
Past Medical History: Reports Other
Additional Past Medical History:
Mild Dementia
Hypertension
Hyperlipidemia
DVT
Past Surgical History: Reports Other
Additional Past Surgical History:
Cholecystectomy
Vein Stripping
Bilateral Shoulder Replacements
Social History
Tobacco: Non-smoker
Living: Other ([facility])
Family History
Family History: Not pertinent
Allergies / Home Medications
Allergies reflects when Allergies were last updated in [facility].
Home Medications with original date entered in [facility]
Allergy/Medication List:
Allergies
Allergy/AdvReac Type Severity Reaction Status Date / Time
Sulfa (Sulfonamide Allergy Pt unaware Verified 11/09/24 12:24
Antibiotics)
sulfites Allergy 'asthma Uncoded 11/09/24 12:24
symptoms'
Home Medications
acetaminophen 500 mg tablet 500 mg PO DAILYPRN PRN mild pain 05/10/25
cholecalciferol (vitamin D3) 250 mcg (10,000 unit) tablet 250 mcg PO DAILY 05/10/25
magnesium 250 mg tablet 250 mg PO DAILY 05/10/25
methylcellulose (laxative) 500 mg tablet (Fiber Therapy (methylcellulose)) 500 mg PO DAILYPRN PRN constipation 05/10/25
Review of Systems
-
Unable to obtain full review of systems at this time due to: Dementia
Physical Exam
Vital Signs
Vital Signs
Temp Pulse Resp BP Pulse Ox
98.3 F 87 20 178/89 95
05/10/25 13:49 05/10/25 17:00 05/10/25 17:00 05/10/25 17:00 05/10/25 16:45
Physical Exam
General: Comfortable and Conversant
HEENT: Anicteric and Moist mucous membranes
Respiratory: Rales (Throughout) and Non Labored Respirations
Cardiac: S1/S2, Regular Rhythm, Murmur (III/ Systolic Murmur) and JVD
GI: Soft and Non Tender
Musculoskeletal: No Clubbing and No Cyanosis
Skin: Warm and Dry
Neuro: Awake, Alert and Nonfocal/grossly intact
Psych: Calm
Laboratory Results
-
05/10/25 14:05
05/10/25 14:05
Laboratory Results
Total Bilirubin 0.7 mg/dl (0.2-1.3) 05/10/25 14:05
AST 15 U/L (14-36) 05/10/25 14:05
ALT 11 U/L (0-35) 05/10/25 14:05
Alkaline Phosphatase 58 U/L (38-126) 05/10/25 14:05
Data Reviewed
-
CT Scan: Report Reviewed by me
Lab Data: Labs Reviewed by me
Impression/Plan
-
Syncope, concern for progression of aortic stenosis
-Check Echocardiogram
-Monitor on Telemetry
Suspected Heart Failure, unknown type
-Patient with JVD and rales on exam
-Check BNP and CXR
-Give Lasix 40mg IV x one dose Now
-Monitor Is&Os and Daily Weights
Essential Hypertension
-Patient does not take any blood medications at home
-BP running on the high side
-Add prn hydralazine
-Suspect will improve with dose of Lasix
Dementia without behavioral disturbance
-Monitor for mood/behavior changes during hospitalization
DVT proph: Lovenox
Code Status: Full Code
[2025-05-10] MEDS: LASIX 40 MG IV (21:08)
[2025-05-11] VITALS (8 sets, daily range): BP systolic 110–177; BP diastolic 63–93; BMI 25.2
--- NOTE | 2025-05-11 00:12 | PTCARENOTE ---
Pt arrived via stretcher and ambulated to the bed with assistance. Pt oriented to unit, call saucedo within reach, side rails up, bed in lowest position. Will continue plan of care.
--- NOTE | 2025-05-11 05:52 | PTCARENOTE ---
Tele monitor alarmed 29 beats of Vtach. Pt back in NSR on monitor and HR in 80s. Pt asymptomatic, BP- 166/93, HR- 82, temp- 97.7, 99% on RA. FISHING GAME WARDEN notified and strips sent to her. FISHING GAME WARDEN stated most likely SVT since P wave present. Instructed to obtain
morning labs. Plan of care ongoing.
--- NOTE | 2025-05-11 06:51 | W.PN.UPDATE ---
Update Note
Progress Note Update
Patient with telemetry alarming for 26 beats of VTach. Resolved without intervention. Awaiting morning electrolyte results including magnesium. Denied cp or sob. Remains in NSR.
[2025-05-11 06:54] LABS: Hematocrit 41.7 % (37.0-47.0); Hemoglobin 14.3 g/dL (12.0-16.0); Mean Corp Hgb Conc. 34.3 g/dL (33.0-37.0); Mean Corpuscular Volume 88.5 fL (81.0-99.0); Platelet Count 257 10^3/uL (130-400); Red Cell Dist. Width 13.2 % (11.5-14.5)
[2025-05-11 06:56] LABS: Blood Urea Nitrogen 15 mg/dl (7-17); Calcium 9.6 mg/dl (8.4-10.2); Carbon Dioxide 28 mmol/L (22-30); Chloride 106 mmol/L (98-107); Estimated Creatinine Clearance 54 ml/min; Glucose 110 mg/dl (70-99); Magnesium 1.9 mg/dl (1.6-2.3); Potassium 3.8 mmol/L (3.5-5.1); Sodium 140 mmol/L (135-145); eGFR > 60.00
--- NOTE | 2025-05-11 07:43 | W.PN.HOSP.TC ---
Today's Communication/Plan
-
Beta erum
Continue monitoring on telemetry
Assessment / Plan
Assessment / Plan
Physical Exam
General: Comfortable and Conversant
HEENT: Moist mucous membranes
Respiratory: Rhonchi bilaterally
Cardiac: S1/S2, Regular Rhythm, Murmur (III/ Systolic Murmur)
GI: Soft and Non Tender. Positive bowel sounds.
Musculoskeletal: No Clubbing and No Cyanosis
Skin: Warm and Dry
Neuro: Awake, Alert and Nonfocal/grossly intact
Psych: Calm
Assessement/Plan
84-year-old female past medical history of hypertension, mild to moderate aortic stenosis, prior DVT/PE, hypercholesteremia, dementia presented from [facility] for witnessed syncopal episode. No preceding prodrome. No chest pain or shortness of
breath, focal weakness or numbness. Had some mild head discomfort. Had a similar episode in October with negative workup at that time. She has chronic shortness of breath. Few years ago patient saw entry level financial analyst due to swelling in her legs. Blood
pressure of 183/70. EKG shows normal sinus rhythm, incomplete right bundle branch block. Significant JVD on exam with crackles. Has lower extremity edema. Labs unremarkable. CTA head and neck shows no significant abnormality. CXR apaears to show
pulmonary edema, report pending. Patient with syncopal episode concerning for worsening Aortic Stenosis and Acute CHF. IV fluids given by ER but will give 40 IV Lasix. Check echocardiogram. PRN hydralazine for elevated BP.
Syncope, concern for progression of aortic stenosis
-VTach seen on hospital telemetry
-Check Echocardiogram
-29 beats of VTach versus SVT with aberrancy overnight 05/10/25 to 05/11/25
-Monitor on Telemetry
VTach on telemetry early hours of 05/11/25 morning
-Beta erum
-Echo
-Keep potassium greater than 4, magnesium greater than 2
-Appreciate cardiology
Suspected Heart Failure, unknown type
-Patient with JVD and rales on exam
-Check BNP and CXR
-Give Lasix 40mg IV x one dose Now
-Monitor Is&Os and Daily Weights
Bilateral Lower Extremity Swelling
-Check lower extremity ultrasound to check for DVT
Essential Hypertension
-Patient does not take any blood medications at home
-BP running on the high side
-Add prn hydralazine
-Suspect will improve with dose of Lasix
Dementia without behavioral disturbance
-Monitor for mood/behavior changes during hospitalization
DVT proph: Lovenox
Code Status: Full Code
Anticipated Discharge: 24 - 48 hours
Subjective/Interval History
-
Date of Service: May 11, 2025
Patient was seen and examined. She denied any chest pain or shortness of breath.
Objective Data
-
Labs:
Laboratory Results
05/11/25
06:19
WBC 7.3
Hgb 14.3
Hct 41.7
Plt Count 257
Sodium 140
Potassium 3.8
Chloride 106
Carbon Dioxide 28
BUN 15
Creatinine 0.7
Glucose 110 H
Calcium 9.6
Vital Signs:
Vital Signs
Temp Pulse Resp BP Pulse Ox
98.8 F 66 18 163/63 96
05/11/25 07:00 05/11/25 07:00 05/11/25 07:00 05/11/25 07:00 05/11/25 07:00
I&O
05/10/25 05/11/25 05/12/25
06:59 06:59 06:59
Intake Total 240 / 240
Balance 240 / 240
--- NOTE | 2025-05-11 10:30 | CON.CAR ---
Addendum entered and electronically signed by Avtar Alves MD 05/11/25 12:14:
I saw and examined the patient.
The SALT MANAGER or PA's note was reviewed and I agree with the note.
Comment: General: Well developed, well nourished in NAD.
Neck: Supple, no JVD, HJR, carotids +2 B/L, no bruits bilaterally.
Heart: Non displaced PMI, RRR, 2/6 basal systolic murmur, No S3, S4, no rubs.
Lungs: Scattered rhonchi
Extremities: No clubbing, cyanosis or edema bilaterally.
Neuro: Grossly nonfocal, awake, alert and oriented x3.
Annalise has a history of dementia, aortic stenosis, hypertension, hyperlipidemia, DVT/PE, reflux. She presents with syncope. Activity is limited and walks with a walker but does have chronic dyspnea on exertion. Cardiology was consulted for V.
tach on telemetry.
She is a difficult historian due to dementia. Unclear if she has symptoms prior to the event but did not suffer a significant trauma. Could have been a vasovagal echo so but with V. tach will check echo to assess LV function and reassess aortic
stenosis which was mild to moderate in 2021. Will add low-dose beta-erum as well for V. tach. Might consider outpatient monitoring as well.
Original Note:
Consultation
Consultation Request
Date/Time Consultation Requested: 05/11/2025
Date/Time Consultation Performed: 05/11/2025
Requesting Provider: Dr. North
Performing Provider: Yandy Cameron PA-C for Dr. Alves
Reason for Consultation: Syncope
Medical History
-
History of Present Illness:
Patient is an 84-year-old female with past medical history for dementia, hypertension, hyperlipidemia, aortic stenosis, history of DVT/PE and GERD who presented to emergency department 05/10/2025 from [facility] with witnessed syncope.
She had similar episode in October with unremarkable workup. She has chronic shortness of breath and walks with a walker. EKG on admission showed sinus rhythm with incomplete right bundle branch block. proBNP 1600. Chest x-ray showed mild diffuse
interstitial prominence possibly pulmonary interstitial edema. Patient got 40 mg IV Lasix in emergency department. Patient was found to have 26 beats of VT on morning of 05/11/2025 on telemetry with spontaneous resolution. Potassium 3.8, magnesium
1.9.
Patient reporting to me that she did not pass out but she was sleeping. She also reports she has chronic shortness of breath and dizziness all the time.
Past medical history:
Mild Dementia
Aortic stenosis
Hypertension
Hyperlipidemia
h/o DVT
GERD
Past Medical History
Past Medical History: Other (See HPI)
Past Surgical History: Appendectomy, Cholecystectomy, Gynecological (Tubal ligation), Orthopedic (Bilateral shoulder replacements) and Other (Vein stripping, eyelid surgery for proptosis)
Social History
Tobacco: Non-Smoker
Alcohol: Occasional
Drug: None
Living: Long Term ([facility])
Family History
Family History: CAD, Diabetes and Other (Stroke)
Allergies / Home Medications
Allergy/AdvReac Type Severity Reaction Status Date / Time
Sulfa (Sulfonamide Allergy Pt unaware Verified 11/09/24 12:24
Antibiotics)
sulfites Allergy 'asthma Uncoded 11/09/24 12:24
symptoms'
�Medication �Instructions �Recorded �Confirmed �Type
acetaminophen 500 mg tablet 500 mg PO DAILYPRN PRN mild pain 05/10/25 05/10/25 History
cholecalciferol (vitamin D3) 250 250 mcg PO DAILY 05/10/25 05/10/25 History
mcg (10,000 unit) tablet
magnesium 250 mg tablet 250 mg PO DAILY 05/10/25 05/10/25 History
methylcellulose (laxative) 500 mg 500 mg PO DAILYPRN PRN constipation 05/10/25 05/10/25 History
tablet (Fiber Therapy
(methylcellulose))
Physical Exam
Vital Signs
Temp Pulse Resp BP Pulse Ox
98.8 F 66 18 163/63 96
05/11/25 07:00 05/11/25 07:00 05/11/25 07:00 05/11/25 07:00 05/11/25 07:00
GEN: No distress, awake, Ox3, sitting in bed on room air
HEENT: supple, anicteric, mmm
LUNGS: CTA, no wheezes/rales
CV: Reg, S1/S2, 2/6 syst murmur
ABD: soft, BS+, NT/ND
EXT: No edema, clubbing or cyanosis
NEURO: Gross non-focal
SKIN: No rash, rubs or gallops
Lab Results
05/11/25 06:19
05/11/25 06:19
Dzl-L-Yumtrldcvwm Pept 1600 pg/ml 05/10/25 14:05
Impression / Plan
-
PCP: Virginie Ruvalcaba
Bread Wrapper Operator:Mini Natarajan, last seen in September 2021
Impression:
Presented 05/10/2025 with witnessed syncope
Ventricular tachycardia 26 beats on tele 05/11/2025 in am
Mild Dementia
Aortic stenosis
Hypertension
Hyperlipidemia
h/o DVT
GERD
Echo 05/11/2025: ordered
2D echocardiogram 05/09/2021: Normal biventricular size and systolic function without regional wall motion abnormality. Stage I diastolic dysfunction. EF 65-70%. Normal RV size and systolic function. Thickened mitral valve leaflets with mild mitral
regurgitation. Calcified trileaflet aortic valve with mild to moderate aortic stenosis. Peak/mean gradient 30/16 mmHg. Mild aortic regurgitation. Trace tricuspid regurgitation. Right heart pressures could not be determined due to paucity of TR jet.
No pericardial effusion. Normal aortic root dimensions.
Lexiscan nuclear stress test 11/28/18 was negative for scan scar or ischemia/normal myocardial perfusion. LVEF 59%. PVCs noted during infusion.
Bardy CAM 08/22-04/08: predominant rhythm sinus with average heart rate 82 bpm, range 58-1 43 bpm. Normal EKG intervals. No significant bradycardia arrhythmias, AV block or pauses. Sinus tachycardia with heart rates greater than 100 occurred 70% of
recording. Rare, less than 1% premature atrial contractions. 15 brief episodes of atrial tachycardia, the longest 22 beats at 109 BPM. No atrial fibrillation or flutter. Rare, less than 1% multifocal premature ventricular contractions. No sustained
ventricular arrhythmias.
Plan:
- Presented 05/10/2025 with witnessed syncope at [facility], although patient reporting to me 'I was sleeping'
- Noted to have 26 beat run of ventricular tachycardia on telemetry a.m. of 05/11/2025. Spontaneously converted. Patient also having PVCs, couplets per my review.
- Potassium 3.8, replete, mag 1.9 replete. Keep K greater than 4, mag greater than 2
- Check echocardiogram
- Add on troponin to morning labs
- Add low-dose beta-erum, Toprol 25 mg. Was not on any AV hasmukh blocking medication prior to admission
- Consider ischemic evaluation with cath versus stress test pending echo results
- Known aortic stenosis with last echo in 2020. Check echo to rule out severe aortic stenosis
- Patient did receive 1 dose of IV Lasix in emergency department 05/10/2025. Weight down 6 lbs overnight. Does not appear to be acutely volume overloaded on examination and is on room air. Would hold on giving additional diuretic given patient has
aortic stenosis.
- Check orthostatic blood pressures
Plan discussed with nursing
Called son Al and phone went directly to . [facility] for him to call me back
HPI 05/11/2025:
Patient is an 84-year-old female with past medical history for dementia, hypertension, hyperlipidemia, aortic stenosis, history of DVT/PE and GERD who presented to emergency department 05/10/2025 from [facility] with witnessed syncope.
She had similar episode in October with unremarkable workup. She has chronic shortness of breath and walks with a walker. EKG on admission showed sinus rhythm with incomplete right bundle branch block. proBNP 1600. Chest x-ray showed mild diffuse
interstitial prominence possibly pulmonary interstitial edema. Patient got 40 mg IV Lasix in emergency department. Patient was found to have 26 beats of VT on morning of 05/11/2025 on telemetry with spontaneous resolution. Potassium 3.8, magnesium
1.9.
Patient reporting to me that she did not pass out but she was sleeping. She also reports she has chronic shortness of breath and dizziness all the time.
Data Reviewed
-
EKG: Report Reviewed by me, Discussed with Physician, Discussed with Nurse and Discussed with Patient
Radiology: Report Reviewed by me, Discussed with Physician, Discussed with Nurse and Discussed with Patient
Labs: Labs Reviewed by me, Discussed with Physician, Discussed with Nurse and Discussed with Patient
--- NOTE | 2025-05-11 11:28 | CM ---
Patient seen at bedside
Dx: syncope
PMH: dementia, hypertension, and hyperlipidemia
cardiology consulted
echo today
IA completed
BHATTI form explained. In chart
Patient resides at [facility] Personal care unit, elevator access
CM spoke with Carmen resident service [facility] [phone]
PLOF: independent with rolling walker
DME: Rolling walker
pcp: Sondra Moore, was transitioning to in house pcp at [facility], Jenise Green
Pharmacy: [facility]
PLAN: TBD, continue to follow hospital progress, CM to follow for needs
[2025-05-11 11:37] LABS: Troponin I < 0.012 ng/ml
[2025-05-11] MEDS: MAGNESIUM OXIDE 400 MG PO (12:36)
[2025-05-11] MEDS: TOPROL XL 25 MG PO (12:36)
[2025-05-11] MEDS: KCL 40 MEQ PO (12:36)
[2025-05-11] MEDS: LOVENOX 40 MG SC (17:45)
[2025-05-11] MEDS: MELATONIN 5 MG PO (22:39)
[2025-05-12 03:00] VITALS: BP 137/98
[2025-05-12 07:32] VITALS: BP 171/78
[2025-05-12 07:47] LABS: Hematocrit 42.0 % (37.0-47.0); Hemoglobin 14.2 g/dL (12.0-16.0); Mean Corp Hgb Conc. 33.8 g/dL (33.0-37.0); Mean Corpuscular Volume 88.8 fL (81.0-99.0); Platelet Count 277 10^3/uL (130-400); Red Cell Dist. Width 13.2 % (11.5-14.5)
[2025-05-12] MEDS: TOPROL XL 25 MG PO (07:52)
[2025-05-12 08:09] LABS: Blood Urea Nitrogen 18 mg/dl (7-17); Calcium 9.7 mg/dl (8.4-10.2); Carbon Dioxide 25 mmol/L (22-30); Chloride 107 mmol/L (98-107); Estimated Creatinine Clearance 54 ml/min; Glucose 106 mg/dl (70-99); Magnesium 2.0 mg/dl (1.6-2.3); Potassium 4.4 mmol/L (3.5-5.1); Sodium 137 mmol/L (135-145); eGFR > 60.00
--- NOTE | 2025-05-12 08:16 | W.PN.HOSP.TC ---
Today's Communication/Plan
-
production operations manager spoke with [facility] they cannot take patient today as they do not have a nurse to admit her back, and patient's daughter said she can transport her tomorrow at 10:30am.
Eliquis
See plan
Assessment / Plan
Assessment / Plan
Physical Exam
General: Comfortable and Conversant
HEENT: Moist mucous membranes
Respiratory: Rhonchi bilaterally
Cardiac: S1/S2, Regular Rhythm, Murmur (III/ Systolic Murmur)
GI: Soft and Non Tender. Positive bowel sounds.
Musculoskeletal: No Clubbing and No Cyanosis
Skin: Warm and Dry
Neuro: Awake, Alert and Nonfocal/grossly intact
Psych: Calm
Assessement/Plan
84-year-old female past medical history of hypertension, mild to moderate aortic stenosis, prior DVT/PE, hypercholesteremia, dementia presented from [facility] for witnessed syncopal episode. No preceding prodrome. No chest pain or shortness of
breath, focal weakness or numbness. Had some mild head discomfort. Had a similar episode in October with negative workup at that time. She has chronic shortness of breath. Few years ago patient saw bank clerk due to swelling in her legs. Blood
pressure of 183/70. EKG shows normal sinus rhythm, incomplete right bundle branch block. Significant JVD on exam with crackles. Has lower extremity edema. Labs unremarkable. CTA head and neck shows no significant abnormality. CXR apaears to show
pulmonary edema, report pending. Patient with syncopal episode concerning for worsening Aortic Stenosis and Acute CHF. IV fluids given by ER but will give 40 IV Lasix. Check echocardiogram. PRN hydralazine for elevated BP.
Syncope, concern for progression of aortic stenosis
-VTach seen on hospital telemetry on 05/11/25 morning
-Echocardiogram EF 55 to 60%, moderate aortic stenosis with MPG of 27 mmHg, aortic valve area 1.38 cm�, mild AI
-29 beats of VTach versus SVT with aberrancy overnight 05/10/25 to 05/11/25
-Patient took off her tele given dementia
VTach on telemetry early hours of 05/11/25 morning
-Beta erum
-Echo as above
-Keep potassium greater than 4, magnesium greater than 2
-Appreciate cardiology
Bilateral Lower Extremity Swelling
Left lower extremity DVT involving the posterior tibial vein on ultrasound
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
-Start Eliquis 10 mg BID for 7 days, followed by 5 mg BID -- I discussed with Dr. Westbrook (on-call emergency department technician) about this plan, and she agreed with this plan based on patient's ultrasound findings and clinical picture -- no need for Heparin Drip
-Given history of DVT, may need lifelong anticoagulation
-Reviewed bleeding risks with patient's daughter, patient has no history of cancer, GI bleed, recent surgery in past 3 months, or any head trauma or stroke in past 3 months, and no liver disease. Bleeding risk is relatively low.
Suspected Heart Failure, unknown type
-Received IV Lasix earlier in the hospitalization
-No further diuretics given aortic stenosis and patient appears euvolemic
-Monitor Is&Os and Daily Weights
Essential Hypertension
-Patient does not take any blood medications at home
-BP running on the high side
-Add prn hydralazine
-Suspect will improve with dose of Lasix
Dementia without behavioral disturbance
-Monitor for mood/behavior changes during hospitalization
DVT proph: Lovenox
Code Status: Full Code
Anticipated Discharge: Within 24 hours
Subjective/Interval History
-
Date of Service: May 12, 2025
Patient was seen and examined. She denied any complaints.
Objective Data
-
Labs:
Laboratory Results
05/12/25
07:16
WBC 7.0
Hgb 14.2
Hct 42.0
Plt Count 277
Sodium 137
Potassium 4.4
Chloride 107
Carbon Dioxide 25
BUN 18 H
Creatinine 0.7
Glucose 106 H
Calcium 9.7
Vital Signs:
Vital Signs
Temp Pulse Resp BP Pulse Ox
97.5 F 69 16 171/78 93
05/12/25 07:32 05/12/25 07:52 05/12/25 07:32 05/12/25 07:52 05/12/25 07:32
I&O
05/11/25 05/12/25 05/13/25
06:59 06:59 06:59
Intake Total 240 / 240 840 / 840
Balance 240 / 240 840 / 840
[2025-05-12 11:08] VITALS: BP 148/64
--- NOTE | 2025-05-12 14:27 | CM ---
Addendum entered by Mahnaz Foreman 05/12/25 16:04:
CM consult for eliquis pricing 10mg BID x 7 days, 5mg BID
CM called [facility] ([facility]) - unable to give cost d/t computer down
per Carmen vice president medical affairs they are having issues with their pharmacy. recommended have patient daughter lemon picker medications at [facility]. hospitalist sent script to [facility]
CM called [facility] and spoke with pharmacist and will be able to give pricing once script is received. She also stated Eliquis is unavailable today but would be able to have at their pharmacy by tomorrow.
Daughter Earnestine will call the pharmacy later and follow up and will get armstrong from pharmacist. Daughter states will lemon picker meds tomorrow from [facility] and bring to [facility].
PLAN: [facility] tomorrow
Report #: [phone] Fax #: [phone]
daughter will transport at 10:30am
Original Note:
Met with patient and daughter/daughter in law
PT to eval-pending
spoke with Carmen resident canine service teacher at [facility] Care unit who stated patient can return tomorrow as there was no nurse today after 3pm
daughter states she can transport tomorrow at 10:30am-tt hospitalist
PLAN: [facility] tomorrow
Report #: [phone] Fax #: [phone]
daughter will transport at 10:30am
--- NOTE | 2025-05-12 14:34 | PTCARENOTE ---
1:1 initiated at 0645 this shift and discontinued at 1330 per MD order. Family at bedside.
[2025-05-12 15:00] VITALS: BP 144/60
--- NOTE | 2025-05-12 15:13 | W.PN.CARDCBS ---
Addendum entered and electronically signed by Yandy Caemron PA-C 05/12/25 17:25:
20-minute discussion with daughter at bedside regarding placement of monitor which would help further assess ongoing arrhythmia as a cause of patient's syncopal event. However given patient's significant dementia daughter does not think she would
be able to wear a monitor. Discussed if we found abnormality on monitor with they want procedure such as cardiac catheterization, pacemaker or ICD and once again daughter is unsure if she would want invasive procedures. She would like to talk it
over with her brothers. Discussed monitor could be placed at outpatient follow up. Will continue to treat medically with addition of metoprolol.
Original Note:
Today's Communication / Plan
-
She has discontinued all telemetry leads
Treat conservative given severe dementia
Not a candidate for outpatient monitor as she will not leave leads on
Now being treated for DVT
Impression / Plan
-
PCP: Virginie Ruvalcaba
Test Developer:Mini Natarjaan, last seen in September 2021
Impression:
Presented 05/10/2025 with witnessed syncope
Ventricular tachycardia 26 beats on tele 05/11/2025 in am
New lower extremity DVT
Mild Dementia
Aortic stenosis
Hypertension
Hyperlipidemia
GERD
Echo 05/11/2025: EF 55 to 60%, moderate aortic stenosis with MPG of 27 mmHg, aortic valve area 1.38 cm�, mild AI
2D echocardiogram 05/09/2021: Normal biventricular size and systolic function without regional wall motion abnormality. Stage I diastolic dysfunction. EF 65-70%. Normal RV size and systolic function. Thickened mitral valve leaflets with mild mitral
regurgitation. Calcified trileaflet aortic valve with mild to moderate aortic stenosis. Peak/mean gradient 30/16 mmHg. Mild aortic regurgitation. Trace tricuspid regurgitation. Right heart pressures could not be determined due to paucity of TR jet.
No pericardial effusion. Normal aortic root dimensions.
Lexiscan nuclear stress test 11/28/18 was negative for scan scar or ischemia/normal myocardial perfusion. LVEF 59%. PVCs noted during infusion.
Bardy CAM 08/22-04/08: predominant rhythm sinus with average heart rate 82 bpm, range 58-1 43 bpm. Normal EKG intervals. No significant bradycardia arrhythmias, AV block or pauses. Sinus tachycardia with heart rates greater than 100 occurred 70% of
recording. Rare, less than 1% premature atrial contractions. 15 brief episodes of atrial tachycardia, the longest 22 beats at 109 BPM. No atrial fibrillation or flutter. Rare, less than 1% multifocal premature ventricular contractions. No sustained
ventricular arrhythmias.
Plan:
Etiology of syncope is unclear.
Of note she had an episode of nonsustained V. tach on telemetry on 05/11/2025 but no longer will wear telemetry leads and is taking them off
I doubt she is a candidate for any aggressive intervention given severe dementia
Echocardiogram with slightly worsened aortic stenosis which is not likely the cause of syncope
Normally would consider an outpatient monitor but doubt she would be compliant with the leads
Continue low-dose beta-erum
Discussed with primary service
HPI 05/11/2025:
Patient is an 84-year-old female with past medical history for dementia, hypertension, hyperlipidemia, aortic stenosis, history of DVT/PE and GERD who presented to emergency department 05/10/2025 from [facility] with witnessed syncope.
She had similar episode in October with unremarkable workup. She has chronic shortness of breath and walks with a walker. EKG on admission showed sinus rhythm with incomplete right bundle branch block. proBNP 1600. Chest x-ray showed mild diffuse
interstitial prominence possibly pulmonary interstitial edema. Patient got 40 mg IV Lasix in emergency department. Patient was found to have 26 beats of VT on morning of 05/11/2025 on telemetry with spontaneous resolution. Potassium 3.8, magnesium
1.9.
Patient reporting to me that she did not pass out but she was sleeping. She also reports she has chronic shortness of breath and dizziness all the time.
Progress Note - Test Developer
Subjective
Date of Service: May 12, 2025
No complaints but is confused
Objective
Labs:
05/12/25 07:16
05/12/25 07:16
Labs
Hgb 14.2 g/dL (12.0-16.0) 05/12/25 07:16
Hct 42.0 % (37.0-47.0) 05/12/25 07:16
Plt Count 277 10^3/uL (130-400) 05/12/25 07:16
Sodium 137 mmol/L (135-145) 05/12/25 07:16
Potassium 4.4 mmol/L (3.5-5.1) 05/12/25 07:16
BUN 18 mg/dl (7-17) H 05/12/25 07:16
Creatinine 0.7 mg/dL (0.6-1.0) 05/12/25 07:16
Glucose 106 mg/dl (70-99) H 05/12/25 07:16
Troponins
05/11/25
11:03
Troponin I < 0.012
Vital Signs and I&O:
Vital Signs
Temp Pulse Resp BP Pulse Ox
98.3 F 61 16 148/64 98
05/12/25 11:08 05/12/25 11:08 05/12/25 11:08 05/12/25 11:08 05/12/25 11:08
Vital Signs
Temp Pulse Resp BP Pulse Ox
98.3 F 61 16 148/64 98
05/12/25 11:08 05/12/25 11:08 05/12/25 11:08 05/12/25 11:08 05/12/25 11:08
Intake & Output
05/10/25 05/11/25 05/12/25 05/13/25
06:59 06:59 06:59 06:59
Intake Total 240 / 240 840 / 840 660 / 660
Balance 240 / 240 840 / 840 660 / 660
Physical Exam
Physical Exam
General: Well developed, well nourished in NAD.
Neck: Supple, no JVD, HJR, carotids +2 B/L, no bruits bilaterally.
Heart: Non displaced PMI, RRR, no murmurs, No S3, S4, no rubs.
Lungs: Clear to auscultation bilaterally, no wheeze, rhonchi, rubs bilaterally,
normal expiratory phase.
Extremities: No clubbing, cyanosis or edema bilaterally.
Neuro: Awake but confused
[2025-05-12] MEDS: ELIQUIS 10 MG PO ×2 (15:21→19:24)
[2025-05-12] MEDS: MELATONIN 5 MG PO (21:30)
[2025-05-12 23:00] VITALS: BP 150/78
[2025-05-13 06:00] VITALS: BMI 25.8
[2025-05-13 07:46] LABS: Hematocrit 40.5 % (37.0-47.0); Hemoglobin 13.7 g/dL (12.0-16.0); Mean Corp Hgb Conc. 33.8 g/dL (33.0-37.0); Mean Corpuscular Volume 89.8 fL (81.0-99.0); Platelet Count 245 10^3/uL (130-400); Red Cell Dist. Width 13.2 % (11.5-14.5)
[2025-05-13 07:53] VITALS: BP 143/66
[2025-05-13] MEDS: TOPROL XL 25 MG PO (08:33)
[2025-05-13] MEDS: ELIQUIS 10 MG PO (08:33)
[2025-05-13 08:56] LABS: Blood Urea Nitrogen 17 mg/dl (7-17); Calcium 9.2 mg/dl (8.4-10.2); Carbon Dioxide 28 mmol/L (22-30); Chloride 106 mmol/L (98-107); Estimated Creatinine Clearance 47 ml/min; Glucose 96 mg/dl (70-99); Potassium 4.3 mmol/L (3.5-5.1); Sodium 137 mmol/L (135-145); eGFR > 60.00
[2025-05-13 09:19] VITALS: BP 154/62
--- NOTE | 2025-05-13 09:46 | CM ---
Addendum entered by Mahnaz Foreman 05/13/25 10:44:
spoke with Virginie nurse at [facility] ([phone]) - she states still having issues with [facility]. Also requested report and discharge information faxed before 2pm so she can enter into the system as she leaves at 2pm.
spoke with Lora Pharmacist at [address], (corner of [facility] & [facility]) - they will have Eliquis in later today could not give a time for the daughter to picker/puller - Relayed message and addresss of [facility] to daughter Earnestine who will
picker/puller meds
Original Note:
Patient seen at bedside
PT evaluated today-functioning at her baseline
spoke with daughter Earnestine who will be picking up her medications at [facility] in [place] as [facility] did not have the Eliquis there and she will bring medications to [facility] as [facility] having issues per
Carmen at [facility].
IMM explained. In chart
PLAN: [facility]
Report #: [phone] Fax #: [phone]
daughter will transport
--- NOTE | 2025-05-13 11:03 | W.PN.HOSP.TC ---
Today's Communication/Plan
-
Discharge today
Assessment / Plan
Assessment / Plan
Physical Exam
General: Comfortable and Conversant
HEENT: Moist mucous membranes
Respiratory: Rhonchi bilaterally
Cardiac: S1/S2, Regular Rhythm, Murmur (III/ Systolic Murmur)
GI: Soft and Non Tender. Positive bowel sounds.
Musculoskeletal: No Clubbing and No Cyanosis. Bilateral lower extremity edema, LLE without erythema or cyanosis, B/L lower extremities neurovascularly intact.
Skin: Warm and Dry
Neuro: Awake, Alert and Nonfocal/grossly intact
Psych: Calm
Assessement/Plan
84-year-old female with past medical history of hypertension, mild to moderate aortic stenosis, prior DVT/PE, hypercholesteremia, dementia presented from [facility] for witnessed syncopal episode. No preceding prodrome. No chest pain or shortness
of breath, focal weakness or numbness. Had some mild head discomfort. Had a similar episode in October 2024 with negative workup at that time. She has chronic shortness of breath. Few years ago, patient saw title attorney due to swelling in her legs.
Blood pressure of 183/70. EKG showed normal sinus rhythm, incomplete right bundle branch block. Significant JVD on exam with crackles. Has lower extremity edema. Labs unremarkable. CTA head and neck showed no significant abnormality. CXR appeared to
show pulmonary edema, report pending. Patient with syncopal episode concerning for worsening Aortic Stenosis and Acute CHF.
Syncope, concern for progression of aortic stenosis
-VTach seen on hospital telemetry on 05/11/25 morning
-Echocardiogram EF 55 to 60%, moderate aortic stenosis with MPG of 27 mmHg, aortic valve area 1.38 cm�, mild AI
-29 beats of VTach versus SVT with aberrancy overnight 05/10/25 to 05/11/25
-Patient took off her tele given dementia
-Consider heart monitor outpatient
Nonsustained VTach on telemetry early hours of 05/11/25 morning
-Beta erum
-Echo as above
-Keep potassium greater than 4, magnesium greater than 2
-Appreciate cardiology
Bilateral Lower Extremity Swelling
Left lower extremity DVT involving the posterior tibial vein on ultrasound
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
-Start Eliquis 10 mg BID for 7 days, followed by 5 mg BID -- I discussed with Dr. Westbrook (on-call lay ups assembler) about this plan, and she agreed with this plan based on patient's ultrasound findings and clinical picture -- no need for Heparin Drip
-Given history of DVT, may need lifelong anticoagulation
-Reviewed bleeding risks with patient's daughter, patient has no history of cancer, GI bleed, recent surgery in past 3 months, or any head trauma or stroke in past 3 months, and no liver disease. Bleeding risk is relatively low.
Suspected Heart Failure, unknown type
-Received IV Lasix earlier in the hospitalization
-No further diuretics given aortic stenosis and patient appears euvolemic
-Monitor Is&Os and Daily Weights
Essential Hypertension
-Patient does not take any blood medications at home
-Stable
-Low sodium diet
Dementia without behavioral disturbance
-Monitor for mood/behavior changes during hospitalization
DVT prophylaxis: Lovenox
Code Status: Full Code
More than 30 minutes spent in discharge including
Final examination of the patient
Summarizing hospital stay
Instructions for continuing care to all relevant caregivers
Preparation of discharge records, prescriptions, and referral forms
Total time spent (in minutes): 39
Anticipated Discharge: Today
Subjective/Interval History
-
Date of Service: May 13, 2025
Patient was seen and examined. She reported that she is feeling well, she denied any pain in her legs, and she denied any fever, chest pain or shortness of breath.
Objective Data
-
Labs:
Laboratory Results
05/13/25
07:27
WBC 7.2
Hgb 13.7
Hct 40.5
Plt Count 245
Sodium 137
Potassium 4.3
Chloride 106
Carbon Dioxide 28
BUN 17
Creatinine 0.8
Glucose 96
Calcium 9.2
Vital Signs:
Vital Signs
Temp Pulse Resp BP Pulse Ox
98 F 63 14 143/66 96
05/13/25 07:53 05/13/25 08:33 05/13/25 07:53 05/13/25 08:33 05/13/25 07:53
I&O
05/12/25 05/13/25 05/14/25
06:59 06:59 06:59
Intake Total 840 / 840 900 / 900
Balance 840 / 840 900 / 900
--- NOTE | 2025-05-13 11:21 | W.DCSUMMARY ---
Discharge Summary
Discharge Data
Date of Admission: 05/10/25
Date of Discharge: 05/13/25
Total time spent discharging patient (in min): 39
-
Pending Results: No
Hospital Course
84-year-old female with past medical history of chronic shortness of breath, hypertension, mild to moderate aortic stenosis, prior DVT/PE, hypercholesteremia and dementia presented from [facility] for witnessed syncopal episode. There was no
preceding prodrome, and there was no chest pain, shortness of breath, focal weakness or numbness. Patient had a similar episode in October with negative workup at that time. Patient was given intravenous fluids and found to have volume overload. She
later received one dose of intravenous Lasix with great improvement in her volume status. CTA head and neck showed no significant abnormality. Patient had 26 beats of ventricular tachycardia on telemetry, and spontaneously converted. Toprol 25 mg
was added to patient's regimen. Ultrasound of patient's lower extremities was done and it showed left lower extremity DVT involving the posterior tibial vein and probable chronic thrombus within the left posterior tibial vein posterior branch. It
was determined that patient could be started on Eliquis without the need for Heparin Drip. Echocardiogram, as per cardiology, showed ejection fraction of 55 to 60%, moderate aortic stenosis with MPG of 27 mmHg, aortic valve area 1.38 cm� and mild
AI. Given patient's significant dementia, patient's daughter did not think that patient would be able to wear a monitor. Cardiology also discussed that if an abnormality was found on ambulatory monitoring, would they want procedure such as cardiac
catheterization, pacemaker or ICD, and patient's daughter was unsure if patient would want invasive procedures.
Discharge Plan
-
Patient Disposition: Home (Routine Discharge)
Discharge Diagnosis/Procedures: Syncope
Nonsustained Ventricular Tachycardia in April 2025 hospitalization
Bilateral Lower Extremity Swelling
Left lower extremity DVT involving the posterior tibial vein on ultrasound
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
Suspected Heart Failure, unknown type
Essential Hypertension
Hyperlipidemia
Dementia
Condition: Good
Diet: Low Fat, Low Cholesterol, Low Sodium, 2 Gram Sodium and Restrict fluids to 64 oz
Specialty Instructions: Weigh Daily- Call MD for wt gain/loss 3 lbs overnight/5 lbs in 1 week
Instructions: Deep vein thrombosis (blood clot in the leg), Preventing falls in adults, Apixaban, Metoprolol, Preventing falls - ED (DC)
Referrals:
Sondra Moore MD [Family Provider, Family Practice] - in less than 1 week
Referral Note: New DVT April 2025 hospitalization -- needs close follow-up
Mini Natarajan, [Active, Cardiology]
Referral Note: The cardiology office is working on an appointment for you to see Dr. Natarajan and we will call you with appointment.
Additional Discharge Medication Instructions: Eliquis should be 10 mg twice per day, for 11 more doses of the 10 mg Eliquis (with dose 1 of 11 being on 05/13/25 evening), THEN starting on 05/19/25, you will need to start taking Eliquis 5 mg BID
indefinitely (or until your outpatient doctor stops it). YOU WILL NEED TO GET REFILLS OF THE ELIQUIS FROM YOUR OUTPATIENT DOCTOR -- IT IS EXTREMELY IMPORTANT TO NOT A MISS A SINGLE DOSE OF THE ELIQUIS
Prescriptions:
New
Eliquis 5 mg tablet
See Rx Instructions .ROUTE .COMPLEX Qty: 60 2RF
Rx Instructions:
10 mg BID through 05/18/25, followed by 5 mg BID
metoprolol succinate 25 mg Tablet Extended Release 24 Hr
25 mg PO DAILY Qty: 30 1RF
Continued
acetaminophen 500 mg Tablet
500 mg PO DAILYPRN PRN (Reason: mild pain)
Fiber Therapy (m-cellulose) 500 mg Tablet
500 mg PO DAILYPRN PRN (Reason: constipation)
magnesium 250 mg Tablet
250 mg PO DAILY
cholecalciferol (vitamin D3) 250 mcg (10,000 unit) Tablet
250 mcg PO DAILY
Discharge Orders:
Discharge Patient (As Directed); Ordered 05/13/25
Ordered By: Jarad North
Discharge Date and Time
Discharge Date/Time: 05/13/25 12:13
Print Language: YI
[2025-05-13 11:58] VITALS: BP 135/67
== END 2025-05-13 12:13 | disposition home or self-care (01) ==
LOC: 3 WEST ACU 18:57
PROVIDERS: Physician Assistant Medical; Student in an Organized Health Care Education/Training Program; ADMITTING PHYSICIAN Hospitalist; ATTENDING PHYSICIAN Hospitalist; EMERGENCY PHYSICIAN Emergency Medicine; FAMILY PHYSICIAN Family Medicine; OTHER PHYSICIAN Internal Medicine Cardiovascular Disease
DX: R55 Syncope and collapse (principal); R06.02 Shortness of breath; R42 Dizziness and giddiness; I11.9 Hypertensive heart disease without heart failure; E78.00 Pure hypercholesterolemia, unspecified; F03.C0 Unspecified dementia, severe, without behavioral disturbance, psychotic disturbance, mood disturbance, and anxiety; M79.89 Other specified soft tissue disorders; I45.10 Unspecified right bundle-branch block; R60.0 Localized edema; I82.442 Acute embolism and thrombosis of left tibial vein; I25.2 Old myocardial infarction; I08.0 Rheumatic disorders of both mitral and aortic valves; K21.9 Gastro-esophageal reflux disease without esophagitis; I47.20 Ventricular tachycardia, unspecified; I49.3 Ventricular premature depolarization; I47.19 Other supraventricular tachycardia; Z87.01 Personal history of pneumonia (recurrent); Z86.718 Personal history of other venous thrombosis and embolism; Z90.49 Acquired absence of other specified parts of digestive tract; Z96.612 Presence of left artificial shoulder joint; Z96.611 Presence of right artificial shoulder joint; Z88.2 Allergy status to sulfonamides; Z83.3 Family history of diabetes mellitus; Z82.3 Family history of stroke; Z82.49 Family history of ischemic heart disease and other diseases of the circulatory system; Z98.51 Tubal ligation status; Z86.711 Personal history of pulmonary embolism; Z60.2 Problems related to living alone
CPT/HCPCS: 70496; 70498; 71046; 80048; 80053; 81003; 81015; 82962; 83735; 83880; 84484; 85025; 85027; 87070; 87086; 93005; 93306; 93970; 96360; 97162; 99285; G0378; Q9967

== ENCOUNTER 2025-07-12 17:46 | Inpatient (IN) | payer MEDICARE, OTHER, SELFPAY ==
[2025-07-12] VITALS (19 sets, daily range): BP systolic 120–204; BP diastolic 65–99; PULSE 60–69; BMI 33.2; BMI 29.2
[2025-07-12 12:29] LABS: Glucose - Point of Care 146 mg/dl (70-99)
--- NOTE | 2025-07-12 13:15 | EDRN ---
Zeeshan MCCABE in room w/ pt.
--- NOTE | 2025-07-12 13:17 | ED.GENMED ---
History of Present Illness
General
Chief Complaint: Fainting Sensation
Source: patient and family
Exam Limitations: none
Time Seen by Provider: 07/12/25 13:15
Nursing documentation reviewed up to this point in time: agreed with
History of Present Illness
History of Present Illness:
84 yo female from [facility] Personal Care here with her family stating 3.5 hours ago, she stood up in rastafari, felt faint, did not lose consciousness, son placed her on her rollator seat and wheeled her out to the car. Took her home, gave her some
Pedialyte. Family state she seems more confused and disoriented since. Son states she was here for similar episode 05/10.
Pt mildly confused, Could not say why she's here, can't say what type of building she's in, or the year. She denies headache, CP, SOB, abd. pain.
records reviewed: admitted 05/10-05/13 for Syncope, LLE DVT, prob chronic, started on Eliquis, HTN, HLD, Dementia. Had run of 26 beats v tach and started on Toprol 25 mg
Past History
Past History
ED Past Medical History: Hypercholesterolemia, Other (Pneumonia) and Other (DVT)
ED Past Surgical History: Cholecystectomy, Orthopedic and Other
Social History
Tobacco: Non-smoker
Alcohol: None
Drug: None
Personal: Other
Living: assisted living
Employment: Retired
Family History
Family History: Other (Noncontributory)
Review of Systems
Review of Systems
Allergies reviewed?: Yes
All Other Systems: ROS reviewed and negative except as documented in HPI and ROS
Constitutional: Denies fever
Respiratory: Denies trouble breathing
Cardiac: Denies chest pain, diaphoresis or syncope
ABD/GI: Denies abdominal pain, nausea, vomiting or diarrhea
Musculoskeletal: Denies edema
Skin: Reports no symptoms
Neurological: Denies headache
Phy Exam
Physical Exam
Physical Exam:
GENERAL: No acute distress. A&Ox3.
CONSTITUTIONAL: Afebrile.
EYES: clear, conjunctivae normal
ENMT: moist mucus membranes, Pharynx nl
RESPIRATORY: Regular respirations, nonlabored, lungs clear.
CARDIOVASCULAR: Regular rate and rhythm, no murmurs, no rubs.
GI: Soft, nontender, normal BS
MUSCULOSKELETAL: No spinal bony tenderness. Moving all extremities well. Moves with ease. Well perfused.
SKIN: Warm, dry, pale
PSYCH: Normal mood and affect. Well kept, interactive and appropriate
NEUROLOGIC: Awake, alert and oriented x 2. Speech clear. Cranial nerves II through XII intact. Strength equal throughout. No focal neurological deficits
Course
Orders/Labs/Results
Orders:
Orders
07/12/25 12:15
Electrocardiogram (*1) Urgent
Reason for Study: Syncope
EKG- Treatment ONCE
07/12/25 13:15
Orthostatic VS- Treatment ONCE
07/12/25 13:17
0.9% Sodium Chloride 500 ml [Nss] 500 ml IV BOLUS
07/12/25 13:24
EKG- Treatment ONCE
07/12/25 13:34
Complete Blood Count/With Diff Urgent
Comprehensive Metabolic Panel Urgent
NT-proBNP Urgent
Comment: ADD ON
Troponin I Urgent
07/12/25 14:53
Urinalysis Reflex To Culture Urgent
Date Specimen was Collected: 07/12/25
Time Specimen was Collected: 14:52
Urine Microscopic Reflex Cult Urgent
07/12/25 Dinner
Regular
At Your Request: Full Participation
07/12/25 17:06
CR Chest Portable - 1 View Urgent
Comment:
Reason For Exam: crackles, HTN
Reason Study Needs to be Portable: Unable to Transport
07/12/25 17:13
Furosemide [Lasix] 20 mg IV NOW STA
HydrALAZINE [Apresoline] 10 mg IV NOW STA
07/12/25 17:16
Admit/Transfer Patient As Directed
Co-Sign Provider:
Level of Care: Inpatient admission
Assign to:: IMU- Intermediate Care
Physician / Group: Hospitalists
Diagnosis: Presyncope
Reason for Hospitalization: Hypertensive urgency
Expected length of stay greater than two midnights?: Yes
ELOS- Estimated Length of Stay in days: 3
I certify the patient meets the requirements for IP care: Yes
PRN Pain Medication Management As Directed
May give lesser potent ordered pain med per pt: Yes
preference::
Protocol:: Medication orders for pain may be administered in a
manner that supports deferring to patient preference
when the pt is:
-Requesting an ordered lesser potent pain medication.
Least to most potent pain medications are defined as:
acetaminophen < NSAID < tramadol < opioids (morphine,
oxycodone, hydromorphone).
- Requesting a lesser dose of the same medication IF
ORDERED.
- Requesting a less intrusive route of administration
if both routes are prescribed by the provider (PO <
IV).
07/12/25 17:18
Code Status As Directed
Resuscitation Status: Full Code
07/12/25 17:31
Add On- LAB Routine
Tests Added?: bnp
07/12/25 17:46
HydrALAZINE [Apresoline] 10 mg IV NOW STA
07/12/25 19:53
Acetaminophen [Tylenol] 650 mg PO Q4HPRN PRN
Bisacodyl [Dulcolax] 10 mg RECTAL [id number] PRN
Docusate W/Senna [Senokot-S] 1 tablet PO BIDPRN PRN
Ondansetron Injectable [Zofran] 4 mg IV Q6HPRN PRN
Polyethylene Glycol Powder [Miralax] 17 grams PO DAILYPRN PRN
07/12/25 19:53
Case Management Consult ONCE
Case Management Consult: Discharge Planning
Activity As Directed
Activity Level: With Assistance
Vital Signs As Directed
Frequency: Per unit guidelines
O2 Therapy [RESP] Routine
Titrate/Wean O2 to maintain O2 sat greater than (%): 92
Ot Eval And Treat Routine
Pt Eval And Treat Routine
Activity Level: Ambulate
07/12/25 20:00
Apixaban [Eliquis] 5 mg PO BID
Psyllium [Metamucil, Konsyl] 1 packet PO TIDPRN PRN
07/13/25 06:12
Basic Metabolic Panel IN AM
Complete Blood Count/No Diff IN AM
Magnesium IN AM
TSH IN AM
07/13/25 08:00
Furosemide [Lasix] 20 mg IV BID AT 0800,1600
Magnesium Oxide 400 mg PO DAILY
Metoprolol Xl [Toprol Xl] 25 mg PO DAILY
Abnormal Lab Results
07/12/25 07/12/25 07/12/25
12: 13:34 14:53
Absolute Monos (auto) 0.7 H 10^3/uL
(0.1-0.6)
Sodium 132 L mmol/L
(135-145)
Glucose 104 H mg/dl
(70-99)
Ur Occult Blood Reflex 1+ A
(Negative)
POC Glucose 146 H mg/dl
(70-99)
07/12/25 13:34
07/12/25 13:34
Vital Signs
Initial and Last Documented VS:
Initial Vital Signs
Temp Pulse Resp BP Pulse Ox
97.8 F 62 16 175/79 96
07/12/25 12:22 07/12/25 12:22 07/12/25 12:22 07/12/25 12:22 07/12/25 12:22
Last Documented Vital Signs
Temp Pulse Resp BP Pulse Ox
98.0 F 81 20 127/60 97
07/14/25 03:20 07/14/25 11:10 07/14/25 08:00 07/14/25 11:10 07/13/25 12:00
MDM/Problems Addressed
Differential Diagnosis Includes:
UTI, progressing dementia, dysrhythmia, electrolyte imbalance, dehydration, CA
MDM/Problems Addressed:
84 yo female from [facility] Personal Care here with her family stating 3.5 hours ago, she stood up in rastafari, felt faint, did not lose consciousness, son placed her on her rollator seat and wheeled her out to the car. Took her home, gave her some
Pedialyte. Family state she seems more confused and disoriented since. Son states she was here for similar episode 05/10.
Pt mildly confused, Could not say why she's here, can't say what type of building she's in, or the year. She denies headache, CP, SOB, abd. pain.
Records reviewed: admitted 05/10-05/13 for Syncope, LLE DVT, prob chronic, started on Eliquis, HTN, HLD, Dementia. Had run of 26 beats v-tach and started on Toprol 25 mg, neg Head/Neck CTA
Sinus bradycardia at a rate of 56, unchanged from previous
2:00 PM:
CBC normal
CMP normal
Troponin 0.016 EKG
3:30 p.m.
Orthostatics neg
U/A neg
Family report that pt has been missing meals.past few days, not eating or drinking much. Did not go to breakfast this a.m..
Case discussed with Dr. Laguerre, previous records reviewed. There is no way to determine whether this was a cardiac dysrhythmia, as was the case with her last syncopal episode.
For extra precaution, she will be admitted overnight for monitoring. Family and patient notified and are okay with this plan.
Hospitalist notified of admission.
*Pulse Oximetry
SaO2: 96
Oxygen Mode of Delivery: Room air
Patient hypoxic: no
*EKG
EKG Intrepretation Date: 07/12/25
Interpretation: abnormal
Comparison EKG: no changes
Heart Rate: 56
Rate: bradycardiac
Rhythm: sinus
[place]: normal axis
Interval: normal interval
QRS Pattern: normal QRS
Ischemia: no ischemia
*Critical Care Note
Total Time (30-74mins, 75-104mins- exclusive of procedures): Not Applicable
ED Attending Note
-
Portions of this chart may have been created with voice recognition software.� Occasional wrong word or��sound alike� substitutions may have occurred due to the inherent limitations of voice recognition software.
Discharge Plan
Departure
Patient Disposition: Admit
Date of Disposition: 07/12/25
Time of Disposition: 15:49
Admit to: Telemetry
Presentation/result/management discussed w/ accepting MD/DO: Hospitalist
Condition: Fair
Discharge Problem:
Near syncope
Interventions
Interventions:
*General Assessment Last Done: 07/12/25 13:30
*Neglect/Abuse Screening Last Done: 07/12/25 13:30
*ED- Fall Risk Assessment Last Done: 07/12/25 18:49
*ED COVID-19 Vaccine History Last Done: 07/12/25 13:30
*ED Influenza Vaccine History Last Done: 07/12/25 13:30
*Nursing Disposition Last Done: 07/12/25 19:26
ED- Cardiac Assessment Last Done: 07/12/25 13:30
ED- Neurological Assessment Last Done: 07/12/25 13:30
Discharge Date and Time
Discharge Date/Time: 07/12/25 20:11
--- NOTE | 2025-07-12 13:24 | EDRN ---
Pt ambulated to BR to void.
[2025-07-12 13:43] LABS: Hematocrit 42.3 % (37.0-47.0); Hemoglobin 14.0 g/dL (12.0-16.0); Mean Corp Hgb Conc. 33.1 g/dL (33.0-37.0); Mean Corpuscular Volume 88.7 fL (81.0-99.0); Nucleated Red Blood Cells % 0 %; Platelet Count 298 10^3/uL (130-400); Red Cell Dist. Width 13.4 % (11.5-14.5)
[2025-07-12] MEDS: NSS 500 IV (13:45)
[2025-07-12 14:01] LABS: ALT (SGPT) 12 U/L (0-35); AST (SGOT) 18 U/L (14-36); Albumin 4.5 g/dl (3.5-5.0); Alkaline Phosphatase 69 U/L (38-126); Blood Urea Nitrogen 17 mg/dl (7-17); Calcium 9.4 mg/dl (8.4-10.2); Carbon Dioxide 28 mmol/L (22-30); Chloride 99 mmol/L (98-107); Glucose 104 mg/dl (70-99); Potassium 3.8 mmol/L (3.5-5.1); Sodium 132 mmol/L (135-145); Total Protein 7.8 g/dl (6.3-8.2); eGFR > 60.00
[2025-07-12 14:14] LABS: Troponin I 0.016 ng/ml
[2025-07-12 15:13] LABS: Urine Character Clear (Clear)
[2025-07-12 15:20] LABS: Urine Red Blood Cell 0-2 /HPF (0-2); Urine Squamous Cell >30 /LPF (Few); Urine White Cell 0-2 /HPF (0-5)
--- NOTE | 2025-07-12 16:30 | EDRN ---
Pt ate most of boxed lunch at this time w/ help of her son.
--- NOTE | 2025-07-12 17:29 | EDRN ---
Pt administered boxed lunch.
--- NOTE | 2025-07-12 17:31 | HPS.HSE ---
Family Physician
-
Family Physician: Sondra Moore MD
Chief Complaint
-
Dizziness
History of Present Illness
84F with HTN, , DVT/PE, dementia, diastolic CHF, h/o nonsustained VT, p/w presyncope. Patient was in confucianist and was standing and started to become dizzy and unsteady. Her family sat her down and gave her p.o. fluids and took her home and tried
to feed her, however she was still dizzy as well as acting confused and disoriented, so she came to the ER. At present she is no longer confused, and at rest she is not feeling dizzy. Her dizziness has been occurring frequently at home when she
stands up, she notes she has had a very poor appetite, little motivation to eat. She denies chest pains, difficulty breathing, palpitations, vision changes, headache. She had a recent admission 04/2025 for a syncopal event, at that time she had 26
beats of V. tach on telemetry, she was started on metoprolol, and was seen by cardiology. She was offered a heart monitor, but at that time family felt she would not tolerated and remove it due to her dementia so this was deferred to outpatient.
Family at bedside provides additional history.
Medical History
Past Medical History
Past Medical History: Reports Other
Additional Past Medical History:
Dementia
Hypertension
Hyperlipidemia
DVT
Episode of V. tach
Past Surgical History: Reports Other
Additional Past Surgical History:
Cholecystectomy
Vein Stripping
Bilateral Shoulder Replacements
Social History
Unable to obtain full social history at this time due to: Dementia
Tobacco: Non-smoker
Living: Other ([facility])
Family History
Family History: CAD (Father in his 60s)
Allergies / Home Medications
Allergies reflects when Allergies were last updated in [facility].
Home Medications with original date entered in [facility]
Allergy/Medication List:
Allergies
Allergy/AdvReac Type Severity Reaction Status Date / Time
Sulfa (Sulfonamide Allergy Pt unaware Verified 07/12/25 12:21
Antibiotics)
sulfites Allergy 'asthma Uncoded 07/12/25 12:21
symptoms'
Home Medications
acetaminophen 500 mg tablet 500 mg PO DAILYPRN PRN mild pain 05/10/25
cholecalciferol (vitamin D3) 250 mcg (10,000 unit) tablet 250 mcg PO DAILY Supplement 05/10/25
metoprolol succinate 25 mg tablet,extended release 24 hr 25 mg PO DAILY #30 tabs 05/13/25
apixaban 5 mg tablet (Eliquis) 5 mg PO BID Blood Clot Prevention/Tx 07/12/25
magnesium oxide 250 mg PO DAILY Supplement 07/12/25
psyllium husk 0.52 gram capsule 2.6 g PO TIDPRN PRN CONSTIPATION 07/12/25
Review of Systems
-
Unable to obtain full review of systems at this time due to: Dementia
A 12 point ROS was completed and negative except as noted: Yes
Physical Exam
Vital Signs
Vital Signs
Temp Pulse Resp BP Pulse Ox
97.8 F 69 18 204/70 94
07/12/25 12:22 07/12/25 16:45 07/12/25 16:45 07/12/25 17:01 07/12/25 17:15
Physical Exam
General: No Apparent Distress and Comfortable (When the BP cuff inflated she became agitated.)
HEENT: Anicteric, Moist mucous membranes and PERRLA
Respiratory: Rales and Non Labored Respirations; No Wheezes or Rhonchi
Cardiac: Regular Rhythm and Murmur
GI: Soft, Non Tender, Non Distended and Normal Bowel Sounds
Musculoskeletal: No Clubbing, No Cyanosis and No Edema
Skin: Warm, Dry and Rash
Neuro: Awake, Alert and Oriented (Self, 'health department', 2024)
Hematologic/Lymphatic: No Lymphadenopathy
Psych: Anxious
Laboratory Results
-
07/12/25 13:34
07/12/25 13:34
Laboratory Results
Total Bilirubin 0.5 mg/dl (0.2-1.3) 07/12/25 13:34
AST 18 U/L (14-36) 07/12/25 13:34
ALT 12 U/L (0-35) 07/12/25 13:34
Alkaline Phosphatase 69 U/L (38-126) 07/12/25 13:34
Troponin I 0.016 ng/ml 07/12/25 13:34
Data Reviewed
-
Lab Data: Labs Reviewed by me, Discussed with Nurse, Discussed with Patient and Discussed with Family
Impression/Plan
-
84F with HTN, , DVT/PE, dementia, diastolic CHF, h/o nonsustained VT, recent admission for syncope, p/w presyncope.
In ED BP went up to 200s/100s when patient was anxious. On recheck it was 182/73 and on manual recheck 131/80.
Presyncope
h/o Vtach
Concern for arrhythmia due to recent history of nonsustained VT. Sinus stew on EKG nonspecific ST abnormalities that look similar to prior. Also Concern for hypertensive urgency, see below. Patient reports not eating well, however no clinical
signs of dehydration (UA with normal SG, creatinine is normal, no hypotension, glucose and potassium WNL), only lab normality is mild hyponatremia which could be due to poor diet.
Already had CTH and CTA H/N last admit, no acute intracranial abnormality and no significant stenosis. No acute neuro deficits and no LOC this time so will hold off repeat testing. Consider vestibular dysfunction as cause of dizziness.
Troponin WNL
Telemetry monitoring
BP control. Cont home BB.
Cardiology consult regarding monitoring. I discussed again with patient's family about how that can lead to needing invasive testing or treatments on whether or not that something pt/they would want. As it stands patient does not like to take too
many medications so doubt she will be interested in invasive procedures.
Orthostatic VS
Check TSH
PT/OT
Hypertensive urgency
Essential hypertension
BPs elevated here, worsened with anxiety. Pt reassured and calm and manual recheck now WNL.
h/o medication noncompliance but family reports since last admit she is compliant
PRN IV hydralazine
Cont home BB
diuretic as below
Diastolic CHF
with LVH suspect hypertensive heart disease. Also has .
Last admit received IVF and later was volume overloaded requiring IV lasix.
reviewed echo, G2DD, normal EF
This admit, crackles on exam, could be flash pulm edema from uncontrolled HTN- check CXR and BNP. If abnormal, IV lasix 20mg BID.
Hyponatremia
mild, could be either from poor diet or CHF
she did receive 500ml NS prior to the labs resulting
recheck in AM, check Daniela
h/o DVT
04/2025 Left lower extremity DVT involving the posterior tibial vein on ultrasound
continue eliquis
Dementia
unknown type of dementia, can pursue outpt neuropsych eval
Anxiety
Per history probably suffering panic attacks
probably related to her dementia. Frequent reorientation, outpt dementia therapy
She would probably also benefit from an SSRI like escitalopram if she agrees to take it. Would avoid benzos
Aortic Stenosis
slightly worsened on last echo but was not thought to be the cause of syncope
cards outpt
DVT ppx
eliquis
FC
--- NOTE | 2025-07-12 17:59 | EDRN ---
This RN had conversation about pt w/ Yani Liao MD as BP has been high BUT pt has been uncomfortable w/ BP cuff and moving and tightening up. This RN took BP automatic and it was 180/70 then took it manually and it was 132/80. Pt is
uncomfortable w/ Automatic cuff and tightens her arm, moves her arm and hand w/out remembering to keep them still. I was concerned about lasix order as pt has no hx of CHF, not on Lasix at home/[facility], and no proBNP nor xray completed at this
time and also voiced this concern to Dr. Liao.
--- NOTE | 2025-07-12 18:03 | EDRN ---
Portable xray being performed at stretcher side at this time.
--- NOTE | 2025-07-12 19:00 | EDRN ---
Attempting to call report at this time. IMU unable to take report.
[2025-07-12] MEDS: LASIX 20 MG IV (19:09)
--- NOTE | 2025-07-12 19:11 | EDRN ---
Dr. Liao said to give lasix and gave perameters for BP if SBP> 160 and SBP 140.
--- NOTE | 2025-07-12 19:15 | EDRN ---
Re-attempting to call report at this time to IMU. twice call went to ICU, now on hold.
--- NOTE | 2025-07-12 19:24 | EDRN ---
REport given to Marylou ENCINAS verbally at this time for IMU admit to 335.
[2025-07-12] MEDS: APRESOLINE 5 MG IV (20:49)
[2025-07-12] MEDS: ELIQUIS 5 MG PO (20:49)
[2025-07-13] VITALS (18 sets, daily range): BP systolic 93–162; BP diastolic 53–110; PULSE 68–89
--- NOTE | 2025-07-13 01:06 | PTCARENOTE ---
patient aaox2, disorientated to place. Patient confused and frequently setting off bed alarm. Patient using bsc but does not ring for assistance and does not want help. Patient also refuses to wear blood pressure cuff and becomes very agitated when
blood pressure is taken. patient also takes off pulse ox from finger. Patient on room air. assessment and vital signs as charted.
[2025-07-13 06:26] LABS: Hematocrit 40.7 % (37.0-47.0); Hemoglobin 14.2 g/dL (12.0-16.0); Mean Corp Hgb Conc. 34.9 g/dL (33.0-37.0); Mean Corpuscular Volume 86.6 fL (81.0-99.0); Platelet Count 299 10^3/uL (130-400); Red Cell Dist. Width 13.2 % (11.5-14.5)
[2025-07-13 06:57] LABS: Blood Urea Nitrogen 15 mg/dl (7-17); Calcium 9.5 mg/dl (8.4-10.2); Carbon Dioxide 25 mmol/L (22-30); Chloride 106 mmol/L (98-107); Estimated Creatinine Clearance 47 ml/min; Glucose 114 mg/dl (70-99); Magnesium 2.0 mg/dl (1.6-2.3); Potassium 4.0 mmol/L (3.5-5.1); Sodium 137 mmol/L (135-145); eGFR > 60.00
[2025-07-13 07:28] LABS: TSH 4.35 uIU/ml (0.47-4.68)
[2025-07-13] MEDS: LASIX 20 MG IV (07:36)
[2025-07-13] MEDS: ELIQUIS 5 MG PO ×2 (07:36→20:37)
[2025-07-13] MEDS: MAGNESIUM OXIDE 400 MG PO (07:36)
[2025-07-13] MEDS: TOPROL XL 25 MG PO (07:36)
[2025-07-13 08:57] LABS: Troponin I 0.021 ng/ml
--- NOTE | 2025-07-13 09:02 | CON.CAR ---
Addendum entered and electronically signed by Rod Swartz DO 07/13/25 14:25:
I saw and examined the patient.
The Programmer Analyst Consultant's note was reviewed and I agree with the note.
Comment:
Plan:
Remains in sinus rhythm.
Continue low-dose beta-erum with history of SVT hypertension.
Recent echo with preserved LV function. Aortic stenosis is not significant enough to cause symptoms.
She appears euvolemic. Would not give additional diuretic at this time as that could exacerbate orthostatic symptoms. Monitor daily weights
Medical therapy of non-TN troponin
Monitor orthostatic vitals.
Will arrange for outpatient cardiac follow-up.
Please recall if needed.
Addendum entered and electronically signed by ELIOT Ortez 07/13/25 12:50:
.
Original Note:
Consultation
Consultation Request
Date/Time Consultation Requested: 07/12/20251952
Date/Time Consultation Performed: 07/13/2025, 899
Requesting Provider: Dr. Burnett
Performing Provider: ELIOT Ortez for Dr. Badillo
Reason for Consultation: Presyncope with history of ventricular tachycardia
Medical History
-
Chief Complaint: Dizziness
History of Present Illness:
Patient is an 84-year-old female with past medical history for nonsustained VT, dementia, hypertension, hyperlipidemia, aortic stenosis, history of DVT/PE and GERD who presented to emergency department 07/12/2025 after she became dizzy while
standing in amish. She did not have syncope or fall. Her family brought her home and gave her p.o. fluids however she continued to remain dizzy and was acting confused and disoriented and therefore presented to the ED. She reports a history of
dizziness upon standing. Her appetite is poor. She had an admission in April 2025 for a syncopal event and had 26 beats of ventricular tachycardia on telemetry and was started on metoprolol. Echo at that time with EF 55 to 60%, moderate aortic
stenosis with MPG of 27 mmHg, aortic valve area 1.38 cm�, mild AI. Outpatient clay pigeon setter was advised but given her dementia it was not thought she would be able to wear monitor due to taking off leads. During Apr 2025 admission pt found to
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
She also had a syncopal episode in October 2024 with unremarkable workup.
She denies syncope, palpitations, shortness of breath, chest pain
ED evaluation:
EKG sinus bradycardia 56 bpm, nonspecific ST-T wave abnormality, QTc 428 ms
Chest x-ray no evidence to suggest congestive heart failure, possible subtle, early, or developing pneumonia left lower lobe
Labs: Hemoglobin 14.0, NA 132, K3.8, BUN/creatinine 17/0.8, magnesium 2.0
Troponin 0.016�0.012
proBNP 1010
She was hypertensive overnight with blood pressure 198/77 and received IV hydralazine, blood pressure now lower 93/53, asymptomatic
Past medical history:
Mild Dementia
Nonsustained VT
LLE DVT 04/2025-Eliquis started
Dizziness
Aortic stenosis
Hypertension
Hyperlipidemia
h/o DVT
GERD
Past Medical History
Past Medical History: Other (See HPI)
Past Surgical History: Appendectomy, Cholecystectomy, Gynecological (Tubal ligation), Orthopedic (Bilateral shoulder replacements) and Other (Vein stripping, eyelid surgery for proptosis)
Social History
Tobacco: Non-Smoker
Alcohol: Occasional
Drug: None
Living: Snf ([facility])
Family History
Family History: CAD, Diabetes and Other (Stroke)
Allergies / Home Medications
Allergy/AdvReac Type Severity Reaction Status Date / Time
Sulfa (Sulfonamide Allergy Pt unaware Verified 07/12/25 12:21
Antibiotics)
sulfites Allergy 'asthma Uncoded 07/12/25 12:21
symptoms'
�Medication �Instructions �Recorded �Confirmed �Type
acetaminophen 500 mg tablet 500 mg PO DAILYPRN PRN mild pain 05/10/25 07/12/25 History
cholecalciferol (vitamin D3) 250 250 mcg PO DAILY Supplement 05/10/25 07/12/25 History
mcg (10,000 unit) tablet
metoprolol succinate 25 mg 25 mg PO DAILY #30 tabs 05/13/25 07/12/25 Rx
tablet,extended release 24 hr
apixaban 5 mg tablet (Eliquis) 5 mg PO BID Blood Clot 07/12/25 07/12/25 History
Prevention/Tx
magnesium oxide 250 mg PO DAILY Supplement 07/12/25 07/12/25 History
psyllium husk 0.52 gram capsule 2.6 g PO TIDPRN PRN CONSTIPATION 07/12/25 07/12/25 History
Review of Systems
-
History Source: Patient
All other systems: Negative unless noted
Physical Exam
Vital Signs
Temp Pulse Resp BP Pulse Ox
98.1 F 70 20 93/53 96
07/13/25 07:46 07/13/25 08:30 07/13/25 08:30 07/13/25 08:01 07/13/25 08:39
Lab Results
07/13/25 06:12
07/13/25 06:12
Troponin I 0.021 ng/ml 07/13/25 08:17
Tmy-R-Plsyyaeeeao Pept 1010 pg/ml 07/12/25 13:34
GEN: No distress, awake, Ox3
HEENT: supple, anicteric, mmm
LUNGS: CTA, no wheezes/rales
CV: Reg, S1/S2, 2/6 Systolic murmur
ABD: soft, BS+, NT/ND
EXT: No edema
NEURO: Gross non-focal
SKIN: No rash
Impression / Plan
-
PCP: Virginie Ruvalcaba
Machine I Coremaker:Mini Natarajan, last seen in September 2021
Impression:
dizziness
presyncope
Ventricular tachycardia 26 beats on tele 05/11/2025 in am
LLE DVT, on Eliquis as of 04/2025
Mild Dementia
Aortic stenosis
Hypertension
Hyperlipidemia
GERD
Echo 05/11/2025: EF 55 to 60%, moderate aortic stenosis with MPG of 27 mmHg, aortic valve area 1.38 cm�, mild AI
2D echocardiogram 05/09/2021: Normal biventricular size and systolic function without regional wall motion abnormality. Stage I diastolic dysfunction. EF 65-70%. Normal RV size and systolic function. Thickened mitral valve leaflets with mild mitral
regurgitation. Calcified trileaflet aortic valve with mild to moderate aortic stenosis. Peak/mean gradient 30/16 mmHg. Mild aortic regurgitation. Trace tricuspid regurgitation. Right heart pressures could not be determined due to paucity of TR jet.
No pericardial effusion. Normal aortic root dimensions.
Lexiscan nuclear stress test 11/28/18 was negative for scan scar or ischemia/normal myocardial perfusion. LVEF 59%. PVCs noted during infusion.
Bardy CAM 08/22-04/08: predominant rhythm sinus with average heart rate 82 bpm, range 58-1 43 bpm. Normal EKG intervals. No significant bradycardia arrhythmias, AV block or pauses. Sinus tachycardia with heart rates greater than 100 occurred 70% of
recording. Rare, less than 1% premature atrial contractions. 15 brief episodes of atrial tachycardia, the longest 22 beats at 109 BPM. No atrial fibrillation or flutter. Rare, less than 1% multifocal premature ventricular contractions. No sustained
ventricular arrhythmias.
Plan:
84-year-old female w/ PMH nonsustained VT, dementia, hypertension, hyperlipidemia, mild-mod aortic stenosis, LLE DVT 05/14 and GERD who presented to emergency department 07/12/2025 after she became dizzy while standing in amish. She did not have
syncope or fall. Also had confusion. Reports a history of dizziness upon standing. Echo 04/2025 with preserved LV fxn, mod .
She denies syncope, palpitations, shortness of breath, chest pain
Dizziness:
-Telemetry personally reviewed: Normal sinus rhythm, HR 60s-80s, no tachy or stew arrhythmias
-check orthostatic VS
-cont low dose beta erum given h/o NSVT, HTN and no bradyarrhythmias on telem
-echo 04/2025 with preserved LV fxn, sl worsened (mild-mod) which would not likely be cause of syncope
-consider compression stockings
-outpatient monitor previously considered but doubt she would be compliant with the leads
-given NSVT in past keep K>4, Mag >2, both in range today.
-cont Eliquis for LLE DVT
-proBNP was 1010 on admission and she received 2 doses Lasix 20 mg IV. She does not appear volume overloaded on exam this morning. She is not on diuretic in outpatient setting.
-Troponin detectable but levels below range for myocardial injury. Patient denies chest pain. EKG is stable showing normal sinus rhythm with nonspecific ST and T wave abnormality.
Discussed with nursing
Data Reviewed
-
EKG: Tracing Personally Visualized and interpreted
Medical Tests (Nuc Med, Echo etc): Image Personally Visualized and interpreted
Labs: Labs Reviewed by me
Old Records: Reviewed
--- NOTE | 2025-07-13 09:20 | W.PN.HOSP.TC ---
Today's Communication/Plan
-
Card eval - further mgmt depending on them: inpatient vs outpatient
Assessment / Plan
Assessment / Plan
84yo F with PMHX of DVT on Eliquis, PSVT on metoprolol, dementia, Hx of syncope, moderate brought to ED after she almost passed out in latter day and remained more confused then usual afterwards. Patient afebrile, without urinary aor respiratory
symptoms, feeling normal without complains on the second day after admission. Previously family declined outpatient cardiac tech due to advanced dementia. ALso concern for pulmonary crackles on auscultation on admission with poor HTN control due
to medication non-compliance, so initially started on IV lasix.
A/P:
#Pre-syncopy 2/2 Hx of VT
#Acute metabolic encephalopathy most likely 2/2 HTN emergency
Improve BP control
Telemetry
Cardio to follow
Echo, CTA neck dne last admission without concern for carotid stenosis
cont Toprol
TSH 4.35
Troponin 0.016-0.021
EKG with sinus stew in 56bpm, no overt ST elevation or TWI
UA neg for UTI
#Dementia, unspecified
#DVT
cont home meds
#Hematuria
outpatient urology referral advised -family verbalized understanding
DVT ppx on ELiquis
Full code
I have spent at least 55min reviewing chart, test results, communication with consultants, family over the phone and providing direct patient care
Anticipated Discharge: Within 24 hours
Subjective/Interval History
-
Date of Service: July 13, 2025
Objective Data
-
Labs:
Laboratory Results
07/13/25
06:12
WBC 7.2
Hgb 14.2
Hct 40.7
Plt Count 299
Sodium 137
Potassium 4.0
Chloride 106
Carbon Dioxide 25
BUN 15
Creatinine 0.8
Glucose 114 H
Calcium 9.5
Vital Signs:
Vital Signs
Temp Pulse Resp BP Pulse Ox
98.1 F 70 20 93/53 96
07/13/25 07:46 07/13/25 08:30 07/13/25 08:30 07/13/25 08:01 07/13/25 08:39
Review of Systems
-
History Source: Patient
All other systems: Reviewed and negative
Physical Exam
-
General: No Apparent Distress and Comfortable
HEENT: Normocephalic
Respiratory: Clear to Auscultation
Cardiac: Regular Rhythm
GI: Soft, Nontender and Nondistended
Musculoskeletal: No Clubbing, No Cyanosis and No Edema
Neuro: Awake, Alert, Oriented and AO x 3 (not to time)
Psych: Calm and Apparent Dementia
--- NOTE | 2025-07-13 11:31 | PTCARENOTE ---
Addendum entered by Tish Miner RN 07/13/25 11:34:
Correction - Patient AOx2 (person and time). Disoriented to place.
Original Note:
Patient AOx2 (place and time). Forgetful and needs frequent reminders. Bed and chair alarm on and audible. On RA with SpO2 greater than 92%. NSR on the monitor. BP stable. Orthostatic VS negative. Assist x1 when OOB. Tolerating oral diet. Call saucedo
within reach, bed in lowest position, and bed of wheels locked.
--- NOTE | 2025-07-13 11:40 | CM ---
I.A: Completed By CINDY Westbrook.
Patient resides at [facility] Personal care unit, elevator access. There is a supervisor sulfuric acid plant: Carmen resident service sup [phone].
DME: Rolling walker
Services: None mentioned, independent with ADL's w/ walker.
PCP: Sondra Moore
Pharmacy: [facility]
PLAN: Return to [facility] when ready.
--- NOTE | 2025-07-13 18:21 | PTCARENOTE ---
Assumed care of pt approx 4 pm. SHe was oriented to self and sitting out of bed in chair. She was agitated and taking her wires off and insisting on her own clothes. Her daughter arrived and visited for a short period and pt continued with
confusion, agitation and uncooperativeness. verbal communication increased pt agitation and pt frustration, she insisted to go upstairs thinking she was at her care facility. Inability to reorient patient. Patient provided with 2 staf members to
standy assist her to ambulate in [place] with rolling walker. Pt safety maintained with at lest 1 staff member at her side at all times. Pt provided with dinner but only taking a few bites and insisting to go out inhall for walk which we did. No
medications available for managing behavior. Reached out to covering MD, no new orders at this time and will continue safety 1:1.
--- NOTE | 2025-07-13 21:50 | PTCARENOTE ---
Received pt from previous shift. Systems reviewed, see flowsheets. Pt restless and agitated, walking the halls with 1:1. Initially refused eliquis, but then took it later. Pt allowed heart monitor on briefly, then took it off again. Very agitated
with care. Able to assess heart and lungs when pt sitting in chair and agreeable. Reached out to house provider when pt was being uncooperative, but no new orders at this time. Will continue to maintain 1:1 and monitor. Transfer orders for tele
noted.
--- NOTE | 2025-07-13 23:00 | PTCARENOTE ---
Attempted to get vital signs. Pt became agitated and refused. When asked if we could just spot check a pulse ox, as hers was last checked at 12:00, pt continued to adamantly refuse.
[2025-07-14 07:36] VITALS: BP 132/78
[2025-07-14] MEDS: MAGNESIUM OXIDE 400 MG PO (08:49)
[2025-07-14] MEDS: TOPROL XL 25 MG PO (08:49)
[2025-07-14] MEDS: ELIQUIS 5 MG PO (08:49)
--- NOTE | 2025-07-14 10:15 | W.PN.HOSP.TC ---
Today's Communication/Plan
-
dc
Assessment / Plan
Assessment / Plan
84yo F with PMHX of DVT on Eliquis, PSVT on metoprolol, dementia, Hx of syncope, moderate brought to ED after she almost passed out in [place] and remained more confused then usual afterwards. Patient afebrile, without urinary aor respiratory
symptoms, feeling normal without complains on the second day after admission. Previously family declined outpatient monitor and storage bin tender due to advanced dementia. ALso concern for pulmonary crackles on auscultation on admission with poor HTN control due
to medication non-compliance, so initially started on IV lasix. Cardiology advised outpatient follow up. Medically stable to be dc to the previous living conditions. Patient declined wearing telemetry overnight
A/P:
#Pre-syncope 2/2 Hx of VT
#Acute metabolic encephalopathy most likely 2/2 HTN emergency
Improve BP control
Telemetry
Cardio to follow: patient declines to wear monitor and storage bin tender 2/2 dementia
Echo, CTA neck dne last admission without concern for carotid stenosis
cont Toprol
TSH 4.35
Troponin 0.016-0.021
EKG with sinus stew in 56bpm, no overt ST elevation or TWI
UA neg for UTI
#Dementia, unspecified
#DVT
cont home meds
#Hematuria
outpatient urology referral advised -family verbalized understanding
DVT ppx on ELiquis
Full code
I have spent at least 36min reviewing chart, test results, communication with consultants, family over the phone and providing direct patient care
Anticipated Discharge: Today
Subjective/Interval History
-
Date of Service: July 14, 2025
Objective Data
-
Vital Signs:
Vital Signs
Temp Pulse Resp BP Pulse Ox
98.0 F 72 20 132/78 97
07/14/25 03:20 07/14/25 09:00 07/14/25 08:00 07/14/25 07:36 07/13/25 12:00
I&O
07/13/25 07/14/25 07/15/25
06:59 06:59 06:59
Intake Total 480 / 480
Balance 480 / 480
Review of Systems
-
Unable to obtain full review of systems at this time due to: Dementia
History Source: Patient
Physical Exam
-
General: No Apparent Distress
Neuro: Awake, Alert, Oriented and AO x 3
Psych: Calm
--- NOTE | 2025-07-14 10:19 | W.DCSUMMARY ---
Discharge Summary
Discharge Data
Date of Admission: 07/12/25
Date of Discharge: 07/14/25
-
Pending Results: No
Hospital Course
84yo F with PMHX of DVT on Eliquis, PSVT on metoprolol, dementia, Hx of syncope, moderate brought to ED after she almost passed out in [place] and remained more confused then usual afterwards. Patient afebrile, without urinary aor respiratory
symptoms, feeling normal without complains on the second day after admission. Previously family declined outpatient monitoring manager due to advanced dementia. ALso concern for pulmonary crackles on auscultation on admission with poor HTN control due
to medication non-compliance, so initially started on IV lasix. Cardiology advised outpatient follow up. Medically stable to be dc to the previous living conditions. Patient declined wearing telemetry overnight. Family advised outpatient Urology
appointment due to microhematuria
I have spent at least 36min reviewing chart, test results, communication with consultants, family over the phone and providing direct patient care
Patient was managed for:
#Pre-syncope 2/2 Hx of VT
#Acute metabolic encephalopathy most likely 2/2 HTN emergency
#Dementia, unspecified
#DVT
#Hematuria
Discharge Plan
-
Patient Disposition: Fdc/SNF
Discharge Diagnosis/Procedures: Syncope
Diet: Low Cholesterol
Referrals:
Reza Duncan MD [Active, Urology]
Referral Note: Hematuria
Sondra Moore MD [Family Provider, Family Practice]
Prescriptions:
Continued
acetaminophen 500 mg Tablet
500 mg PO DAILYPRN PRN (Reason: mild pain)
cholecalciferol (vitamin D3) 250 mcg (10,000 unit) Tablet
250 mcg PO DAILY
metoprolol succinate 25 mg Tablet Extended Release 24 Hr
25 mg PO DAILY Qty: 30 1RF
magnesium oxide 250 mg magnesium Tablet
250 mg PO DAILY
psyllium husk 0.52 gram Capsule
2.6 g PO TIDPRN PRN (Reason: CONSTIPATION)
Eliquis 5 mg tablet
5 mg PO BID
Discharge Orders:
Discharge Patient (As Directed); Ordered 07/14/25
Ordered By: Marshall Morfin
Discharge Date and Time
Print Language: AZERBAIJANI
[2025-07-14 11:10] VITALS: BP 127/60
--- NOTE | 2025-07-14 17:10 | CM ---
F/U: Patient is ready to return to [facility]
Report: #[phone]

Daughter aware who had a question about CT of the head. Withe the RN, we shared we saw no note and told her to follow up with her PCP to schedule this. [employer] Professor faxed meds to [facility].
Transport arranged for 12noon. IMM completed. PLAN: Back to [facility].
== END 2025-07-14 12:00 | disposition home or self-care (01) | DRG 304 ==
LOC: IMU 17:46
PROVIDERS: Registered Nurse; ADMITTING PHYSICIAN Internal Medicine; ATTENDING PHYSICIAN Internal Medicine; EMERGENCY PHYSICIAN Emergency Medicine; FAMILY PHYSICIAN Family Medicine; OTHER PHYSICIAN Internal Medicine Cardiovascular Disease
DX: I16.1 Hypertensive emergency (principal); G93.41 Metabolic encephalopathy; I47.20 Ventricular tachycardia, unspecified; F03.A4 Unspecified dementia, mild, with anxiety; I50.30 Unspecified diastolic (congestive) heart failure; E87.1 Hypo-osmolality and hyponatremia; Z86.718 Personal history of other venous thrombosis and embolism; Z91.148 Patient's other noncompliance with medication regimen for other reason; I11.0 Hypertensive heart disease with heart failure; Z96.611 Presence of right artificial shoulder joint; Z96.612 Presence of left artificial shoulder joint; Z82.49 Family history of ischemic heart disease and other diseases of the circulatory system; Z88.2 Allergy status to sulfonamides; Z79.01 Long term (current) use of anticoagulants; Z86.711 Personal history of pulmonary embolism; Z86.79 Personal history of other diseases of the circulatory system; K21.9 Gastro-esophageal reflux disease without esophagitis; E78.00 Pure hypercholesterolemia, unspecified
CPT/HCPCS: 71045; 80048; 80053; 81003; 81015; 82962; 83735; 83880; 84443; 84484; 85025; 85027; 93005; 96360; 97116; 97162; 97166; 97535; 99285